=== PATIENT | female | born 1955 | race Caucasian/White ===

== ENCOUNTER → 2021-05-27 15:12 | Outpatient (BNVA) | payer BC, SELFPAY | PROVIDERS: PCP Internal Medicine; Visit Provider Hospitalist ==

== ENCOUNTER 2021-06-21 10:53 | Outpatient (REF) | payer BC, SELFPAY ==
[2021-06-21 12:30] LABS: MANUAL DIFF FLAG NO
[2021-06-21 12:51] LABS: Basophils Percent Auto 0.5 % (0-2); Eosinophils Absolute Auto 0.1 X10*3/uL (0.0-0.4); Hematocrit 43.7 % (37.0-47.0); Hemoglobin 14.3 g/dl (12.0-16.0); Imm Gran Abs Auto 0.02 X10*3/uL (0.00-0.03); Imm Gran Pct Auto 0.3 % (0.0-0.4); Lymphocytes Percent Auto 33.6 % (20-40); Mean Corpuscular HGB Conc 32.7 g/dl (31.0-35.0); Mean Corpuscular Hemoglobin 30.4 pg (27.0-33.0); Monocytes Absolute Auto 0.3 X10*3/uL (0.1-1.2); Monocytes Percent Auto 5.6 % (2-11); Neutrophils Absolute Auto 3.5 x10*3/uL (2.0-8.3); Platelet Count 250 X10*3/uL (160-400); Red Cell Distribution Width 13.2 % (11.0-16.0); White Blood Count 6.1 X10*3/uL (4.8-10.8)
[2021-06-21 13:32] LABS: Erythrocyte Sedimentation Rate 12 MM/HR (0-20)
--- NOTE | 2021-06-21 15:13 | PFT_ITS ---
FLOWS: FEV1 59% of predicted at 1.57 L. FVC 73% of predicted at 2.52 L. FEV1 to FVC ratio of 0.62. No bronchodilator response. LUNG VOLUMES: Total lung capacity 98% of predicted at 5.27 L. Residual volume 120% of predicted at 2.30 L. Slow vital capacity 83% of predicted at 2.67 L. Expiratory reserve volume 34% of predicted at 0.31 L. Diffusion capacity is mildly decreased, diffusion capacity corrects to normal after adjustment for alveolar ventilation. IMPRESSION: Moderate obstructive ventilatory defect with no bronchodilator response. Increased residual volume suggests air trapping. Decreased expiratory reserve volume suggests extrathoracic restriction likely secondary to abdominal obesity. Stuart Del Rio MD AP/MODL / [id number]
[2021-06-24 13:31] LABS: IgA 175 mg/dL (70-320); IgG 861 mg/dL (600-1540); IgM 133 mg/dL (50-300)
[2021-06-25 07:42] LABS: Anti Nuclear Antibody Screen NEGATIVE (NEGATIVE)
[2021-06-25 16:06] LABS: Cyclic Citrullinated Peptide <16 UNITS
[2021-06-28 16:05] LABS: Asperg fumigatus Precip Abs NEGATIVE (NEGATIVE); Micropoly faeni Abs NEGATIVE (NEGATIVE); Pigeon serum Abs NEGATIVE (NEGATIVE); Saccharo pora viridis Abs NEGATIVE (NEGATIVE); Thermo candidus Abs NEGATIVE (NEGATIVE); Thermoa vulgaris #1 NEGATIVE (NEGATIVE)
== END 2021-06-21 10:54 | disposition home or self-care (01) ==
LOC: HO.RESP 10:53
PROVIDERS: PCP Internal Medicine; Visit Provider Hospitalist
DX: R06.00 Dyspnea, unspecified (principal); J45.909 Unspecified asthma, uncomplicated; R91.8 Other nonspecific abnormal finding of lung field
CPT/HCPCS: 36415; 82784; 85025; 85652; 86038; 86039; 86200; 86331; 86606; 86609; 94060; 94727; 94729

== ENCOUNTER → 2021-07-08 09:58 | Outpatient (BNVA) | payer BC, SELFPAY | PROVIDERS: PCP Internal Medicine; Visit Provider Hospitalist ==

== ENCOUNTER 2021-07-25 13:50 | Outpatient (REF) | payer BC, SELFPAY | END 2021-07-25 13:51 | disposition home or self-care (01) | LOC: HO.LAB 13:50 | PROVIDERS: PCP Internal Medicine; Visit Provider Hospitalist | DX: J44.9 Chronic obstructive pulmonary disease, unspecified (principal) | CPT/HCPCS: 87070; 87116; 87205 ==

== ENCOUNTER → 2021-09-20 13:46 | Outpatient (BNVA) | payer BC, SELFPAY | PROVIDERS: PCP Internal Medicine; Visit Provider Hospitalist | DX: J44.9 Chronic obstructive pulmonary disease, unspecified (principal) ==

== ENCOUNTER 2021-10-14 10:15 | Outpatient (REF) | payer BC, SELFPAY ==
[2021-10-14 10:43] LABS: MANUAL DIFF FLAG NO
--- NOTE | 2021-10-14 11:20 | ECG_ITS ---
Test Reason : ON MEDICATION FOR MAC LUNG DISEASE Blood Pressure : / mmHG Vent. Rate : 069 BPM Atrial Rate : 069 BPM P-R Int : 158 ms QRS Dur : 086 ms QT Int : 424 ms P-R-T Axes : 069 007 042 degrees QTc Int : 454 ms Normal sinus rhythm Normal ECG No previous ECGs available Referred By: Jaskaran Bond Electronically Signed By:JOSEFA OVIEDO
[2021-10-14 11:47] LABS: Basophils Percent Auto 0.5 % (0-2); Eosinophils Absolute Auto 0.1 X10*3/uL (0.0-0.4); Eosinophils Percent Auto 0.8 % (0-4); Hematocrit 41.6 % (37.0-47.0); Hemoglobin 13.3 g/dl (12.0-16.0); Imm Gran Abs Auto 0.18 X10*3/uL (0.00-0.03); Imm Gran Pct Auto 2.1 % (0.0-0.4); Lymphocytes Percent Auto 34.9 % (20-40); Mean Corpuscular Hemoglobin 30.6 pg (27.0-33.0); Mean Corpuscular Volume 95.6 fL (80.0-98.0); Mean Platelet Volume 9.5 fL (9.4-12.3); Monocytes Absolute Auto 0.4 X10*3/uL (0.1-1.2); Monocytes Percent Auto 4.6 % (2-11); Neutrophils Absolute Auto 4.8 x10*3/uL (2.0-8.3); Neutrophils Percent Auto 57.1 % (45-73); Platelet Count 325 X10*3/uL (160-400); Red Blood Count 4.35 X10*6/uL (4.20-5.50); Red Cell Distribution Width 13.2 % (11.0-16.0); White Blood Count 8.5 X10*3/uL (4.8-10.8)
[2021-10-14 12:18] LABS: Alanine Aminotransferase 27 U/L (0-31); Alkaline Phosphatase 82 U/L (39-117); Anion Gap 15 (12-20); Aspartate Amino Transferase 14 U/L (5-31); Bilirubin Direct < 0.2 mg/dL (0.0-0.5); Bilirubin Total 0.3 mg/dL (0.0-1.0); Blood Urea Nitrogen 30 mg/dL (9-16); Calcium 9.9 mg/dL (8.4-10.2); Carbon Dioxide 28 mmol/L (22-29); Chloride 101 mmol/L (96-108); Estimated Glomerular Filt Rate 56; Glucose Random 141 mg/dL (60-115); Potassium 4.5 mmol/L (3.3-5.1); Sodium 139 mmol/L (135-145); Total Protein 6.6 g/dL (6.5-8.0)
[2021-10-14 12:23] LABS: Erythrocyte Sedimentation Rate 20 MM/HR (0-20)
== END 2021-10-14 10:16 | disposition home or self-care (01) ==
LOC: HO.LAB 10:15
PROVIDERS: PCP Internal Medicine; Visit Provider Hospitalist
DX: R91.8 Other nonspecific abnormal finding of lung field (principal); J44.9 Chronic obstructive pulmonary disease, unspecified
CPT/HCPCS: 36415; 80048; 80076; 85025; 85652; 87116; 93005

== ENCOUNTER 2021-11-20 11:32 | Outpatient (REF) | payer BC, SELFPAY ==
[2021-11-20 11:51] LABS: MANUAL DIFF FLAG NO
[2021-11-20 11:57] LABS: Basophils Percent Auto 0.6 % (0-2); Eosinophils Absolute Auto 0.1 X10*3/uL (0.0-0.4); Eosinophils Percent Auto 1.8 % (0-4); Hematocrit 42.5 % (37.0-47.0); Hemoglobin 13.9 g/dl (12.0-16.0); Imm Gran Abs Auto 0.01 X10*3/uL (0.00-0.03); Imm Gran Pct Auto 0.2 % (0.0-0.4); Lymphocytes Absolute Auto 1.6 X10*3/uL (1.2-4.9); Lymphocytes Percent Auto 25.8 % (20-40); Mean Corpuscular HGB Conc 32.7 g/dl (31.0-35.0); Mean Corpuscular Hemoglobin 30.6 pg (27.0-33.0); Mean Corpuscular Volume 93.6 fL (80.0-98.0); Mean Platelet Volume 9.7 fL (9.4-12.3); Monocytes Absolute Auto 0.4 X10*3/uL (0.1-1.2); Monocytes Percent Auto 6.4 % (2-11); Neutrophils Absolute Auto 4.1 x10*3/uL (2.0-8.3); Neutrophils Percent Auto 65.2 % (45-73); Platelet Count 217 X10*3/uL (160-400); Red Blood Count 4.54 X10*6/uL (4.20-5.50); Red Cell Distribution Width 13.2 % (11.0-16.0); White Blood Count 6.2 X10*3/uL (4.8-10.8)
[2021-11-20 12:41] LABS: Alanine Aminotransferase 21 U/L (0-31); Albumin Level 4.2 g/dL (3.5-5.0); Alkaline Phosphatase 81 U/L (39-117); Anion Gap 13 (12-20); Aspartate Amino Transferase 19 U/L (5-31); Bilirubin Direct < 0.2 mg/dL (0.0-0.5); Bilirubin Total 0.3 mg/dL (0.0-1.0); Blood Urea Nitrogen 21 mg/dL (9-16); Calcium 9.4 mg/dL (8.4-10.2); Carbon Dioxide 29 mmol/L (22-29); Chloride 103 mmol/L (96-108); Estimated Glomerular Filt Rate > 60; Glucose Random 112 mg/dL (60-115); Potassium 4.7 mmol/L (3.3-5.1); Sodium 140 mmol/L (135-145); Total Protein 6.6 g/dL (6.5-8.0)
== END 2021-11-20 11:33 | disposition home or self-care (01) ==
LOC: HO.LAB 11:32
PROVIDERS: PCP Internal Medicine; Visit Provider Hospitalist
DX: A31.0 Pulmonary mycobacterial infection (principal)
CPT/HCPCS: 36415; 80048; 80076; 85025

== ENCOUNTER 2021-12-09 17:52 | Outpatient (REF) | payer BC, SELFPAY | END 2021-12-09 17:53 | disposition home or self-care (01) | LOC: HO.LNP 17:52 | PROVIDERS: Visit Provider Hospitalist | DX: A31.0 Pulmonary mycobacterial infection (principal) | CPT/HCPCS: 87116 ==

== ENCOUNTER 2022-04-08 10:15 | Outpatient (REF) | payer BC, SELFPAY ==
[2022-04-08 11:42] LABS: MANUAL DIFF FLAG NO
[2022-04-08 12:03] LABS: Basophils Percent Auto 0.5 % (0-2); Eosinophils Absolute Auto 0.1 X10*3/uL (0.0-0.4); Eosinophils Percent Auto 2.3 % (0-4); Hematocrit 42.9 % (37.0-47.0); Hemoglobin 14.2 g/dl (12.0-16.0); Imm Gran Abs Auto 0.01 X10*3/uL (0.00-0.03); Imm Gran Pct Auto 0.2 % (0.0-0.4); Lymphocytes Absolute Auto 1.5 X10*3/uL (1.2-4.9); Lymphocytes Percent Auto 25.2 % (20-40); Mean Corpuscular HGB Conc 33.1 g/dl (31.0-35.0); Mean Corpuscular Hemoglobin 31.2 pg (27.0-33.0); Mean Corpuscular Volume 94.3 fL (80.0-98.0); Monocytes Absolute Auto 0.4 X10*3/uL (0.1-1.2); Monocytes Percent Auto 6.4 % (2-11); Neutrophils Absolute Auto 3.8 x10*3/uL (2.0-8.3); Neutrophils Percent Auto 65.4 % (45-73); Platelet Count 206 X10*3/uL (160-400); Red Blood Count 4.55 X10*6/uL (4.20-5.50); White Blood Count 5.8 X10*3/uL (4.8-10.8)
[2022-04-08 13:03] LABS: Alanine Aminotransferase 17 U/L (0-31); Albumin Level 4.4 g/dL (3.5-5.0); Alkaline Phosphatase 87 U/L (39-117); Anion Gap 14 (12-20); Aspartate Amino Transferase 18 U/L (5-31); Bilirubin Direct < 0.2 mg/dL (0.0-0.5); Bilirubin Total 0.3 mg/dL (0.0-1.0); Blood Urea Nitrogen 22 mg/dL (9-16); Calcium 9.9 mg/dL (8.4-10.2); Carbon Dioxide 30 mmol/L (22-29); Chloride 103 mmol/L (96-108); Estimated Glomerular Filt Rate > 60; Glucose Random 97 mg/dL (60-115); Potassium 4.6 mmol/L (3.3-5.1); Sodium 142 mmol/L (135-145)
[2022-04-10 14:19] LABS: Immunoglobulin G Subclass 1 543 mg/dL (382-929); Immunoglobulin G Subclass 2 184 mg/dL (241-700); Immunoglobulin G Subclass 3 43 mg/dL (22-178); Immunoglobulin G Subclass 4 60.6 mg/dL (4-86); Immunoglobulin G Total 887 mg/dL (600-1540)
== END 2022-04-08 10:16 | disposition home or self-care (01) ==
LOC: HO.LAB 10:15
PROVIDERS: PCP Internal Medicine; Visit Provider Hospitalist
DX: A31.0 Pulmonary mycobacterial infection (principal)
CPT/HCPCS: 36415; 80048; 80076; 82784; 85025

== ENCOUNTER → 2022-04-23 10:27 | Outpatient (BNVA) | payer BC, SELFPAY | PROVIDERS: PCP Internal Medicine; Visit Provider Hospitalist | DX: Z23 Encounter for immunization (principal); A31.0 Pulmonary mycobacterial infection; J21.9 Acute bronchiolitis, unspecified; J44.9 Chronic obstructive pulmonary disease, unspecified; R91.8 Other nonspecific abnormal finding of lung field; L20.9 Atopic dermatitis, unspecified | CPT/HCPCS: 90471; 90677 ==

== ENCOUNTER 2022-05-29 10:14 | Outpatient (REF) | payer BC, SELFPAY | END 2022-05-29 10:15 | disposition home or self-care (01) | LOC: HO.LNP 10:14 | PROVIDERS: Visit Provider Hospitalist | DX: A31.0 Pulmonary mycobacterial infection (principal) | CPT/HCPCS: 87116; 87206 ==

== ENCOUNTER → 2022-07-22 09:51 | Outpatient (BNVA) | payer BC, SELFPAY | PROVIDERS: PCP Internal Medicine; Visit Provider Hospitalist | DX: A31.0 Pulmonary mycobacterial infection (principal) ==

== ENCOUNTER 2022-09-01 13:39 | Outpatient (REF) | payer BC, SELFPAY ==
[2022-09-01 14:03] LABS: MANUAL DIFF FLAG NO
[2022-09-01 15:07] LABS: Basophils Percent Auto 0.6 % (0-2); Eosinophils Absolute Auto 0.2 X10*3/uL (0.0-0.4); Eosinophils Percent Auto 2.5 % (0-4); Hematocrit 42.8 % (37.0-47.0); Hemoglobin 14.2 g/dl (12.0-16.0); Imm Gran Abs Auto 0.03 X10*3/uL (0.00-0.03); Imm Gran Pct Auto 0.5 % (0.0-0.4); Lymphocytes Absolute Auto 1.9 X10*3/uL (1.2-4.9); Lymphocytes Percent Auto 29.1 % (20-40); Mean Corpuscular HGB Conc 33.2 g/dl (31.0-35.0); Mean Corpuscular Hemoglobin 31.5 pg (27.0-33.0); Mean Corpuscular Volume 94.9 fL (80.0-98.0); Mean Platelet Volume 10.2 fL (9.4-12.3); Monocytes Absolute Auto 0.4 X10*3/uL (0.1-1.2); Monocytes Percent Auto 6.3 % (2-11); Platelet Count 213 X10*3/uL (160-400); Red Blood Count 4.51 X10*6/uL (4.20-5.50); Red Cell Distribution Width 12.8 % (11.0-16.0); White Blood Count 6.5 X10*3/uL (4.8-10.8)
[2022-09-01 15:58] LABS: Anion Gap 15 (12-20); Blood Urea Nitrogen 21 mg/dL (9-16); Calcium 9.7 mg/dL (8.4-10.2); Carbon Dioxide 28 mmol/L (22-29); Chloride 103 mmol/L (96-108); Estimated Glomerular Filt Rate > 60; Glucose Random 88 mg/dL (60-115); Sodium 142 mmol/L (135-145)
== END 2022-09-01 13:40 | disposition home or self-care (01) ==
LOC: HO.LAB 13:39
PROVIDERS: PCP Internal Medicine; Visit Provider Hospitalist
DX: J45.41 Moderate persistent asthma with (acute) exacerbation (principal); R04.2 Hemoptysis; A31.0 Pulmonary mycobacterial infection; J44.9 Chronic obstructive pulmonary disease, unspecified; R91.8 Other nonspecific abnormal finding of lung field; L20.9 Atopic dermatitis, unspecified; Z87.891 Personal history of nicotine dependence
CPT/HCPCS: 36415; 80048; 85025; 87070; 87205; 94640

== ENCOUNTER 2022-09-01 14:55 | Outpatient (REF) | payer BC, SELFPAY ==
--- NOTE | ~2022-09-01 | XR_ITS ---
EXAMINATION: XR CHEST CLINICAL INFORMATION: R04.2 - Hemoptysis COMPARISON: Outside CT chest noncontrast 08/13/2022 and 09/18/2021 (RAYUS). TECHNIQUE: 2 views of the chest were obtained. FINDINGS: There is no acute intrathoracic disease. No airspace consolidation or groundglass opacity or effusion. No bronchiectasis. The heart is normal in size. Again, there is incidental tapering at the cardiophrenic angles consistent with areolar tissue and old minor linear scarring right medial base. The costophrenic sulci are clear. The hilar and mediastinal contours are normal. No visible acute bony abnormality. XR/XR chest 2V IMPRESSION: No acute intrathoracic disease.
== END 2022-09-01 14:56 | disposition home or self-care (01) ==
LOC: HO.XRAY 14:55
PROVIDERS: Visit Provider Hospitalist
DX: R04.2 Hemoptysis (principal)
CPT/HCPCS: 71046

== ENCOUNTER → 2022-09-24 10:24 | Outpatient (BNVA) | payer BC, SELFPAY | PROVIDERS: PCP Internal Medicine; Visit Provider Hospitalist ==

== ENCOUNTER 2023-01-07 16:53 | Outpatient (REF) | payer BC, SELFPAY | END 2023-01-07 16:54 | disposition home or self-care (01) | LOC: HO.LNP 16:53 | PROVIDERS: Visit Provider Hospitalist | DX: A31.0 Pulmonary mycobacterial infection (principal) | CPT/HCPCS: 87116; 87206 ==

== ENCOUNTER 2023-02-18 10:54 | Outpatient (REF) | payer BC, SELFPAY ==
--- NOTE | ~2023-02-18 | XR_ITS ---
EXAMINATION: XR CHEST 2 VIEWS CLINICAL INFORMATION: COPD. COMPARISON: Chest radiographs dated 09/01/2022; CT chest dated 08/13/2022. TECHNIQUE: Frontal and lateral views of the chest were obtained. FINDINGS: The heart, great vessels, pulmonary vasculature and mediastinum are normal. The lungs show no focal infiltrate, effusion or pneumothorax. There is no acute osseous abnormality. There is multi-level thoracic spondylosis. XR/XR chest 2V IMPRESSION: No active cardiopulmonary disease.
== END 2023-02-18 10:55 | disposition home or self-care (01) ==
LOC: HO.LAB 10:54
PROVIDERS: PCP Internal Medicine; Visit Provider Hospitalist
DX: A31.0 Pulmonary mycobacterial infection (principal); J44.9 Chronic obstructive pulmonary disease, unspecified; R91.8 Other nonspecific abnormal finding of lung field
CPT/HCPCS: 36415; 71046; 80048; 80076; 85025; 85652

== ENCOUNTER 2023-02-18 10:54 | Outpatient (AMB) | payer BC, SELFPAY ==
--- NOTE | 2023-02-18 11:05 | MHC.OFFVIS ---
Intake Vital Signs 02/18/23 11:06 Height 5 ft 5 in Weight 229 lb BMI 38.1 Pulse 71 Pulse Source Pulse Oximeter Pulse Oximetry (%) 96 Oxygen Delivery Method Room Air Intake Visit Reasons: Asthma Hot Roller Required: No Allergies amoxicillin Allergy (Severe, Verified 02/18/23 11:07) Rash contact metal agent Allergy (Severe, Verified 02/18/23 11:07) Hives amikacin Adverse Reaction (Severe, Verified 02/18/23 11:07) Shortness of Breath HPI HPI Comments History of Present Illness Details The patient is a 67-year-old woman with a long history of asthma and pulmonary nodules. She was under the care of a pulmonary group for many years. 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 During that process evaluation the patient was referred to [place] when she was also evaluated there for her ongoing respiratory symptoms in addition to pulmonary nodules. She has been stable on the Breo inhaler. the patient does have relief on her current respiratory regimen. We did talk about potential triggers. She has had allergy testing both with blood testing and more recently she has been evaluated by Allergy immunology which she had skin testing and does have typical allergies including molds and environmental allergens. She was placed on Xolair but she had adverse symptoms. She has had issues with high as and other rashes. She was referred to [place] for further evaluation. It was question if she would go back on Xolair as lower dose. she will continue following with Allergy immunology this time. the patient also describes going to [facility] just a few days ago with chest pain. She was ruled out for an RI. Her EKG was indeed abnormal demonstrating decrease R-wave progression. She was evaluated by her new primary care doctor and she will be undergoing additional testing for underlying cardiac disease at this time. The patient was a smoker and she quit more than 20 years ago. She did have a CT scan of the chest that was personally by me back in September 2020 at [facility] in [place]. She has underlying pulmonary nodules in addition to to some areas of tree in budding suggesting of bronchiolitis. These areas are scattered. She also has pulmonary nodules. We did talk about underlying obstructive airway disease in different conditions that can mimic asthma. In the meantime will start with repeating her pulmonary function studies and assessing her baseline. In addition to that will request blood work in order to further investigate her underlying condition. 07/08/2021 the patient is here for a pulmonary follow-up visit. She continues to have dyspnea on exertion. The Breo inhaler has been helpful partially. She did undergo pulmonary function studies that we personally reviewed. Appears to have moderate degree of obstruction consistent moderate COPD. In addition to that she did have a moderate diffusion impairment. Again we looked at her CT scan and not a clear etiology why her diffusing capacity is decreased. Ultimately need to consider underlying anemia or and or pulmonary vascular disease. Will try to optimize respiratory therapy by switching her over to Trelegy. In the meantime the patient quit smoking about 20 years ago. Will have her undergo an alpha-1 antitrypsin test to address that question. The patient does have pulmonary nodules in addition to the tree-in-bud in that she had back in our CT scan September 2020. In view of her ongoing symptoms in the pulmonary nodules the patient needs to get a repeat CT scan in September 2021. Will have her undergo the study and follow up with us for evaluation. 09/20/2021 the patient is here for a pulmonary follow-up visit. She continues with her ongoing symptoms of dyspnea and chest congestion. She did start to Trelegy inhaler which appears to be more effective for her. However, she has noticed increased chest congestion and production of mucus. moderate severity. 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 In review of her CT scans the chest this is consistent with the findings with treating budding and pulmonary nodules consistent of a smoldering lower respiratory infection. The patient have a repeat CT scan of the chest September 2021 which I personally reviewed with her demonstrating stable findings. We did talk about the treatment for the mycobacterium complex along with duration. The patient understands that even after treating the organism there is a 25% chance of relapse. Usually is from a different organism. She is aware that the mycobacteria limbs in many places including the daughter and also hot tubs. The patient is to minimize dose exposures. There is also question if she is allergic to the organisms as she has significant allergies. At this point the patient is symptomatic and she does have ongoing changes on CT scan although there is stable. He is not on reasonable to treat her and see if she tolerates the therapy in the address to see if her symptoms are improving. I will also try to request sensitivities to see if those were able to be completed on the positive sample. 11/25/2021 the patient is here for a pulmonary follow-up visit. Overall she is doing well. Seems to be tolerating the anti mycobacterial therapy with azithromycin ethambutol and rifampin. Initially at the beginning of the therapy she did develop worsening cough it was unclear if it was related to the medication. Therefore the medication was stopped briefly. She was diagnosed with pneumonia. She was treated with doxycycline. Subsequently once her symptoms improve the patient went back on the therapy. She did start slowly to make sure she can not tolerated. And be size having some GI symptoms she is tolerating it okay. 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 So therefore will continue to monitor her progress in the medication. I did request sensitivities and we did review that is macrolide sensitive and also amikacin sensitive. Therefore the patient has any difficulties tolerating the therapy we can also consider inhaled amikacin. The patient has underlying pulmonary nodules. Her last CT scan was back in September 2021. Will continue with current respiratory therapy. Will also monitor blood work every 3-4 months to make sure she is tolerating the medicine. Will hopefully plan to repeat the CT scan September 2022. 04/23/2022 the patient is here for a pulmonary follow-up visit. Overall the patient has been doing relatively well. Cough is better. Although it is hard for her to tolerate the antimicrobial therapy. She does take it 3 times a week. We did review her sputum samples. She did have positive mycobacterial cultures in July. We did perform sensitivities demonstrating sensitive to both amikacin and also clarithromycin. Subsequently we repeated the sputum cultures sometime in the fall 2021 and recently did come back positive again for the same mycobacteria organism. Explained to the patient that is likely that she is responding to the therapy but she needs additional therapy. She is also stating that she sometimes takes the antacid close to her azithromycin. She will she will try to take it a different time. Meantime we talked about different options. One option be to increase her azithromycin to daily from 3 times a week. She can continue the other medications 3 times a week to minimize side effects. Another option is to continue with 3 times a day medication and add amikacin to her regimen. Both options will be reasonable. However, will try increasing the azithromycin since we know that is sensitive and will repeat her sputum in a month. I am hopeful that the sputum cultures come back negative. If for some reason she is not tolerating the daily azithromycin the making again continue with 3 times a week medication regimen and add a medication to the regimen. If at any point the patient does not tolerate the therapy or continues to have positive cultures then we talked about sending her to the [facility] for further assessment. Will follow-up in a few months. She does need to have a repeat CT scan to follow-up with pulmonary nodules hopefully in the spring. 07/22/2022 the patient is here for a pulmonary follow-up visit. Overall she is doing about the same. She still has a cough and at times is productive although sometimes difficult to expectorate. She continues to tolerate the azithromycin daily and she is also using the family do not rifampin 3 times a week. This which she has been able to tolerated better as far as the GI adverse effects. We did look at her cultures again. 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 After that we did increase her azithromycin to daily. Only after few weeks of being on the daily azithromycin the patient had a 3rd sputum sent and again quickly positive for mycobacterium avium complex. Clinically, the patient does continue to cough and continues to be symptomatic. Denies any weight loss or night sweats. She has underlying pulmonary nodules. In view of her ongoing symptoms will go ahead and repeat the CT scan to address of response to therapy and to see if any nodular progression is evident. In addition to that will start the process of starting the patient on inhaled amikacin to properly treat this ongoing smoldering infection that does not appear to be responding to the current regimen. Explained to her that it may be that she has been exposed to other mycobacterial organisms under way that a making it difficult. She tries to be very careful with her exposures however. Well will trying to optimize her antimycobacterial therapy will also refer her to the [facility] in order to further address the persistent positive mycobacterial cultures even on therapy. 09/01/2022 the patient is here for a sick visit. The patient started the amikacin as prescribed. She also continue with the other anti mycobacterial therapy. Unfortunately she started demonstrating some chest tightness and chest congestion. She notices a little specks of blood. It was minimal. Therefore the recommendation was for her to continue and just monitor. The next day she had more episodes of chest tightness and congestion and also little bit more bloods. Therefore she stopped it. She has been complaining of increasing cough chest congestion moderate severity. She has been using her inhaler with partial improvement. Denies any fevers or chills. She does complaint of some pleuritic chest discomfort primarily the left chest area on the side. On examination she does have rhonchi and wheezing throughout. I do not appreciate a focal exam although I believe she probably pulled a muscle on her left side. I have her get an x-ray just to make sure. In the meantime the patient will need some prednisone. She is going to hold off on the amikacin as this is causing her to have a significant inflammatory reaction. Does not appear to be tolerating it. She does have an appointment coming up at [facility]. She is going to hold off on the amikacin until she is evaluated. Will reassess once the patient is feeling better. In the office we did give her a DuoNeb treatment to try to help with the wheezing and also did collect the sputum for culture to make sure that she does not have any ongoing infectious process. We were able to get a lot of sputum but we did send in any way to see if it can be process. 09/24/2022 the patient is here for pulmonary follow-up visit. She is doing better now after having an adverse effect to the amikacin. She completed the prednisone completed the doxycycline. She is still off her anti mycobacterial therapy. The patient did follow-up in [place] and was evaluated by the [facility]. They did agree to stop the amikacin. They did recommend the patient start daily antimicrobial therapy with azithromycin, ethambutol and rifampin. Did recommend a higher dose of ethambutol as well. Therefore going to work on getting her back to that regimen. I am hopeful that we can start slowly in order for to tolerated. Will plan to monitor closely her sputum cultures in regards of her hemoptysis is now all resolved which is reassuring. 02/18/2023 the patient is here for a pulmonary follow-up visit. the patient has been complaining increasing dyspnea on exertion. Also worsening cough. Moderate severity. We did review her last PFTs from 2020 demonstrating moderate obstruction. Will go ahead and plan to repeat the PFTs at this time. Currently she is optimized with Trelegy. In addition to that she is concerned that she still has positive mycobacterial cultures. Now with a different organism, M. marseillense. she is concerned of home knee different mycobacterial strained she could have. We did talk about her potential exposures. 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 She does try to wear mask. Although it does not appear to be helpful. 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 In the meantime she is been off and on her Mycobacterial therapy. The patient has had some issues with GI side effects. Therefore she had to stop the medication for period of time during the [place] when she was working and having issues with GI system. Subsequently after that the patient decided to hold off specially with this resistant organism. I did advise her to go back on the mycobacterial therapy as per the recommendations from the [facility]. Will request additional sensitivities from this mycobacterial strain. 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 Atopic dermatitis Bronchiolitis Pulmonary nodules Asthma Social History (Updated 05/27/21 @ 15:26 by JAY Espinoza) Patient Tobacco Use Status: Former Tobacco user Tobacco use type: Cigarette Years Smoked: Quit 1998 20 years Review of Systems Const Denies night sweats ENT Denies change in voice, Denies hoarseness, Denies lip swelling, Denies mouth pain, Reports nasal congestion, Reports nasal discharge and Denies tongue swelling Card Denies chest pain and Reports dyspnea on exertion Resp Denies chest congestion, Reports cough, Denies hemoptysis, Reports dyspnea on exertion and Reports wheezing GI Denies abdominal pain, Reports bloating, Denies hematochezia, Reports change in bowel habits, Reports loose stools and Reports nausea Musc Denies no additional complaints and Reports joint swelling Skin/Breast Denies rash and Denies skin swelling Neuro Denies Neuro-related abnormal movements Psych Denies no additional complaints Quentin/Lymph Denies easy bleeding and Denies lymphadenopathy Aller/Immun Denies lip swelling, Denies tongue swelling and Reports wheezing Physical Exam Vital Signs: Last Vital Signs Pulse 71 02/18/23 11:06 Pulse Ox 96 02/18/23 11:06 Oxygen Delivery Method Room Air 02/18/23 11:06 BMI result Body Mass Index 38.1 Const General: alert Neck Neck: Yes normal visual inspection, Yes full ROM and Yes no lymphadenopathy Chest Chest palpation & inspection: normal inspection of the chest Resp Effort & Inspection: prolonged expiratory phase Auscultation: no crackles, no rales, no rhonchi, no wheezes and diminished lung sounds Cardio Rate: regular rate Rhythm: regular rhythm Heart sounds: S1 normal heart sound present and S2 normal heart sound present GI Palpation (GI): Soft to palpation and nontender Auscultation: normal bowel sounds General: Yes no CVA tenderness Back/Spine/Pelvis Back: no CVA tenderness Skin General skin exam: rashes and/or lesions noted Assessment & Plan Assessment & Plan (1) 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 avium complex; M.CHIMAERA INTRACELLULARE; M. avium complex Code(s): A31.0 - Pulmonary mycobacterial infection (2) Asthma-COPD overlap syndrome: Code(s): J44.9 - Chronic obstructive pulmonary disease, unspecified (3) Pulmonary nodules: Code(s): R91.8 - Other nonspecific abnormal finding of lung field (4) Bronchiolitis: Code(s): J21.9 - Acute bronchiolitis, unspecified Plan Continue Trelegy 200 GLADYS as needed restart Azithromycin daily restart Rifampin/Ethambutol daily Labs now and in 3 months Avoid saunas, poorly ventilated hot tubes and direct exposure to soil. Should invest on a respirator when working with soil PFTs CXR should get an EKG while on the Macrolide therapy F/U in 2-3 months Orders: Orders Basic Metabolic Panel Today A31.0 - Pulmonary mycobacterial infection, J44.9 - Chronic obstructive pulmonary disease, unspecified PFT pulmonary function test Today J44.9 - Chronic obstructive pulmonary disease, unspecified Complete Blood Count Auto Diff Today A31.0 - Pulmonary mycobacterial infection, J44.9 - Chronic obstructive pulmonary disease, unspecified Liver Panel Today A31.0 - Pulmonary mycobacterial infection, J44.9 - Chronic obstructive pulmonary disease, unspecified Erythrocyte Sedimentation Rate Today A31.0 - Pulmonary mycobacterial infection, J44.9 - Chronic obstructive pulmonary disease, unspecified XR chest 2V Today A31.0 - Pulmonary mycobacterial infection, J44.9 - Chronic obstructive pulmonary disease, unspecified ECG 12 lead EKG Today J44.9 - Chronic obstructive pulmonary disease, unspecified Medications: Refilled [id number] 100-62.5-25 mcg (Trelegy Ellipta) 1 inh inhalation DAILY 60 ea 11RF 30 days J44.9 - Chronic obstructive pulmonary disease, unspecified Coding Level of Care Code Est Pt Level 4 (68848) Diagnoses Nontuberculous mycobacterial disease of lung A31.0 Asthma-COPD overlap syndrome J44.9 Pulmonary nodules R91.8 Bronchiolitis J21.9 Time Spent (min) 20
[2023-02-18 11:06] VITALS: PULSE 71; O2SAT 96; BMI 38.1
== END 2023-02-18 11:33 | disposition home or self-care (01) ==
PROVIDERS: PCP Internal Medicine; Visit Provider Hospitalist
DX: A31.0 Pulmonary mycobacterial infection (principal); J44.9 Chronic obstructive pulmonary disease, unspecified; R91.8 Other nonspecific abnormal finding of lung field
CPT/HCPCS: 99214

== ENCOUNTER 2023-03-23 11:49 | Outpatient (REF) | payer BC, SELFPAY ==
--- NOTE | 2023-03-23 12:43 | PFT_ITS ---
Forced vital capacity 98%, FEV1 73%, FEV1/FVC ratio is 58. AEC11-78 27% and MVV is 59%. Post-bronchodilator therapy, there is no significant change. Total lung capacity 95%. Residual volume 100%. Diffusion capacity 79%. CONCLUSION: Moderately severe obstructive airway disorder. There is no response to bronchodilator therapy. MD ELTON Last/FRANCISCO / [id number]
== END 2023-03-23 11:50 | disposition home or self-care (01) ==
LOC: HO.RESP 11:49
PROVIDERS: PCP Internal Medicine; Visit Provider Hospitalist
DX: J44.9 Chronic obstructive pulmonary disease, unspecified (principal)
CPT/HCPCS: 94010; 94727; 94729

== ENCOUNTER → 2023-03-23 12:43 | Outpatient (BNV) | payer BC, SELFPAY | PROVIDERS: PCP Internal Medicine; Visit Provider Internal Medicine | DX: J44.9 Chronic obstructive pulmonary disease, unspecified (principal) | CPT/HCPCS: 94060; 94727; 94729 ==

== ENCOUNTER 2023-03-27 11:28 | Outpatient (REF) | payer BC, SELFPAY ==
[2023-03-27 11:38] LABS: MANUAL DIFF FLAG NO
--- NOTE | 2023-03-27 11:40 | ECG_ITS ---
Test Reason : COPD Blood Pressure : / mmHG Vent. Rate : 068 BPM Atrial Rate : 068 BPM P-R Int : 160 ms QRS Dur : 086 ms QT Int : 424 ms P-R-T Axes : 062 -04 048 degrees QTc Int : 450 ms Normal sinus rhythm Intra-ventricular conduction delay Otherwise normal ECG When compared with ECG of 14-OCT-2021 11:21, No significant change was found Referred By: Jaskaran Bond Electronically Signed By:ZAYDA VARNER MD
[2023-03-27 11:55] LABS: Basophils Percent Auto 0.5 % (0-2); Eosinophils Absolute Auto 0.1 X10*3/uL (0.0-0.4); Eosinophils Percent Auto 2.2 % (0-4); Hematocrit 42.2 % (37.0-47.0); Hemoglobin 14.3 g/dl (12.0-16.0); Imm Gran Abs Auto 0.02 X10*3/uL (0.00-0.03); Imm Gran Pct Auto 0.3 % (0.0-0.4); Lymphocytes Absolute Auto 1.4 X10*3/uL (1.2-4.9); Lymphocytes Percent Auto 22.8 % (20-40); Mean Corpuscular HGB Conc 33.9 g/dl (31.0-35.0); Mean Corpuscular Hemoglobin 31.4 pg (27.0-33.0); Mean Corpuscular Volume 92.5 fL (80.0-98.0); Monocytes Absolute Auto 0.4 X10*3/uL (0.1-1.2); Monocytes Percent Auto 5.8 % (2-11); Neutrophils Absolute Auto 4.3 x10*3/uL (2.0-8.3); Neutrophils Percent Auto 68.4 % (45-73); Platelet Count 224 X10*3/uL (160-400); Red Blood Count 4.56 X10*6/uL (4.20-5.50); Red Cell Distribution Width 12.8 % (11.0-16.0); White Blood Count 6.2 X10*3/uL (4.8-10.8)
[2023-03-27 12:31] LABS: Erythrocyte Sedimentation Rate 13 MM/HR (0-20)
[2023-03-27 12:44] LABS: Alanine Aminotransferase 15 U/L (0-31); Albumin Level 4.2 g/dL (3.5-5.0); Alkaline Phosphatase 82 U/L (39-117); Anion Gap 12 (12-20); Aspartate Amino Transferase 15 U/L (5-31); Bilirubin Direct 0.1 mg/dL (0.0-0.5); Bilirubin Total 0.3 mg/dL (0.0-1.0); Blood Urea Nitrogen 17 mg/dL (9-16); Calcium 9.8 mg/dL (8.4-10.2); Carbon Dioxide 27 mmol/L (22-29); Chloride 105 mmol/L (96-108); Estimated Glomerular Filt Rate > 60; Glucose Random 112 mg/dL (60-115); Potassium 3.2 mmol/L (3.3-5.1); Sodium 141 mmol/L (135-145)
== END 2023-03-27 11:29 | disposition home or self-care (01) ==
LOC: HO.LAB 11:28
PROVIDERS: PCP Internal Medicine; Visit Provider Hospitalist
DX: J44.9 Chronic obstructive pulmonary disease, unspecified (principal); A31.0 Pulmonary mycobacterial infection
CPT/HCPCS: 36415; 80048; 80076; 85025; 85652; 93005

== ENCOUNTER → 2023-05-05 07:53 | Outpatient (REF) | payer BC, SELFPAY ==
--- NOTE | 2023-05-05 08:03 | ECG_ITS ---
Test Reason : copd Blood Pressure : / mmHG Vent. Rate : 073 BPM Atrial Rate : 073 BPM P-R Int : 164 ms QRS Dur : 090 ms QT Int : 432 ms P-R-T Axes : 069 -04 051 degrees QTc Int : 475 ms Normal sinus rhythm Normal ECG When compared with ECG of 27-MAR-2023 11:39, No significant change was found Referred By: Jaskaran Bond Electronically Signed By:JOSEFA OVIEDO
== END ==
LOC: HO.CARD 07:53
PROVIDERS: PCP Internal Medicine; Visit Provider Hospitalist
DX: J44.9 Chronic obstructive pulmonary disease, unspecified (principal)
CPT/HCPCS: 93005

== ENCOUNTER → 2023-05-05 08:03 | Outpatient (BNV) | payer BC, SELFPAY | PROVIDERS: PCP Internal Medicine; Visit Provider Internal Medicine | DX: R06.02 Shortness of breath (principal); J44.9 Chronic obstructive pulmonary disease, unspecified | CPT/HCPCS: 93010 ==

== ENCOUNTER 2023-05-05 08:22 | Outpatient (AMB) | payer BC, SELFPAY ==
--- NOTE | 2023-05-05 08:46 | A.OFFVIS_ITS ---
Intake Vital Signs 05/05/23 08:48 Height 5 ft 5 in Weight 227 lb 1.218 oz BMI 37.8 BP 128/60 Blood Pressure Location Rt brachial Position Sitting Pulse 66 Pulse Source Pulse Oximeter Pulse Oximetry (%) 97 Oxygen Delivery Method Room Air Intake Visit Reasons: EKG Results Swine Nutritionist Required: No Allergies amoxicillin Allergy (Severe, Verified 05/05/23 08:52) Rash contact metal agent Allergy (Severe, Verified 05/05/23 08:52) Hives amikacin Adverse Reaction (Severe, Verified 05/05/23 08:52) Shortness of Breath HPI HPI Comments History of Present Illness Details The patient is a 67-year-old woman with a long history of asthma and pulmonary nodules. She was under the care of a pulmonary group for many years. 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 During that process evaluation the patient was referred to [place] when she was also evaluated there for her ongoing respiratory symptoms in addition to pulmonary nodules. She has been stable on the Breo inhaler. the patient does have relief on her current respiratory regimen. We did talk about potential triggers. She has had allergy testing both with blood testing and more recently she has been evaluated by Allergy immunology which she had skin testing and does have typical allergies including molds and environmental allergens. She was placed on Xolair but she had adverse symptoms. She has had issues with high as and other rashes. She was referred to [place] for further evaluation. It was question if she would go back on Xolair as lower dose. she will continue following with Allergy immunology this time. the patient also describes going to [facility] just a few days ago with chest pain. She was ruled out for an OK. Her EKG was indeed abnormal demonstrating decrease R-wave progression. She was evaluated by her new primary care doctor and she will be undergoing additional testing for underlying cardiac disease at this time. The patient was a smoker and she quit more than 20 years ago. She did have a CT scan of the chest that was personally by me back in September 2020 at [facility] in [place]. She has underlying pulmonary nodules in addition to to some areas of tree in budding suggesting of bronch iolitis. These areas are scattered. She also has pulmonary nodules. We did talk about underlying obstructive airway disease in different conditions that can mimic asthma. In the meantime will start with repeating her pulmonary function studies and assessing her baseline. In addition to that will request blood work in order to further investigate her underlying condition. 04/23/2022 the patient is here for a pul monary follow-up visit. Overall the patient has been doing relatively well. Cough is better. Although it is hard for her to tolerate the antimicrobial therapy. She does take it 3 times a week. We did review her sputum samples. She did have positive mycobacterial cultures in July. We did perform sensitivities demonstrating sensitive to both amikacin and also clarithromycin. Subsequently we repeated the sputum cultures sometime in the fall 2021 and recently did come back positive again for the same mycobacteria organism. Explained to the patient that is likely that she is responding to the therapy but she needs additional therapy. She is also stating that she sometimes takes the antacid close to her azithromycin. She will she will try to take it a different time. Meantime we talked about different options. One option be to increase her azithromycin to daily from 3 times a week. She can continue the other medications 3 times a week to minimize side ef fects. Another option is to continue with 3 times a day medication and add amikacin to her regimen. Both options will be reasonable. However, will try increasing the azithromycin since we know that is sensitive and will repeat her sputum in a month. I am hopeful that the sputum cultures come back negative. If for some reason she is not tolerating the daily azithromycin the making again continue with 3 times a week medication regimen and add a medication to the regimen. If at any point the patient does not tolerate the therapy or continues to have positive cultures then we talked about sending her to the [facility] mycobacterial Clinic for further assessment. Will follow-up in a few months. She does need to have a repeat CT scan to follow-up with pulmonary nodules hopefully in the spring. 07/22/2022 the patient is here for a pulm onary follow-up visit. Overall she is doing about the same. She still has a cough and at times is productive although sometimes difficult to expectorate. She continues to tolerate the azithromycin daily and she is also using the family do not rifampin 3 times a week. This which she has been able to tolerated better as far as the GI adverse effects. We did look at her cultures again. 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 After that we did increase her azithromycin to dacia ly. Only after few weeks of being on the daily azithromycin the patient had a 3rd sputum sent and again quickly positive for mycobacterium avium complex. Clinically, the patient does continue to cough and continues to be symptomatic. Denies any weight loss or night sweats. She has underlying pulmonary nodules. In view of her ongoing symptoms will go ahead and repeat the CT scan to address of response to therapy and to see if any nodular progression is evident. In addition to that will start the process of starting the patient on inhaled amikacin to properly treat this ongoing smoldering infection that does not appear to be responding to the current regimen. Explained to her that it may be that she has been exposed to other mycobacterial organisms under way that a making it difficult. She tries to be very careful with her exposures however. Well will trying to optimize her antimycobacterial therapy will also refer her to the [facility] mycobacterial Clinic in order to further address the persistent positive mycobacterial cultures even on therapy. 09/01/2022 the patient is here for a sick visit. The patient started the amikacin as prescribed. She also continue with the other anti mycobacterial therapy. Unfortunately she started demonstrating some chest tightness and chest congestion. She notices a little specks of blood. It was minimal. Therefore the recommendation was for her to continue and just monitor. The next day she had more episodes of chest tightness and congestion and also little bit more bloods. Therefore she stopped it. She has been complaining of increasing cough chest congestion moderate severity. She has been using her inhaler with partial improvement. Denies any fevers or chills. She does complaint of some pleuritic chest discomfort primarily the left chest area on the side. On examination she does have rhonchi and wheezing throughout. I do not appreciate a focal exam although I believe she probably pulled a muscle on her left side. I have her get an x-ray just to make sure. In the meantime the patient will need some prednisone. She is going to hold off on the amikacin as this is causing her to have a significant inflammatory reaction. Does not appear to be tolerating it. She does have an appointment coming up at [facility] mycobacterium clinic. She is going to hold off on the amikacin until she is evaluated. Will reassess once the patient is feeling better. In the office we did give her a DuoNeb treatment to try to help with the wheezing and also did collect the sputum for culture to make sure that she does not have any ongoing infectious process. We were able to get a lot of sputum but we did send in any way to see if it can be process. 09/24/2022 the patient is here for pulmon joslyn follow-up visit. She is doing bet ter now after having an adverse effect to the amikacin. She completed the prednisone completed the doxycycline. She is still off her anti mycobacterial therapy. The patient did follow-up in [place] and was evaluated by the [facility] mycobacterial Clinic. They did agree to stop the amikacin. They did recommend the patient start daily antimicrobial therapy with azithromycin, ethambutol and rifampin. Did recommend a higher dose of ethambutol as well. Therefore going to work on getting her back to that regimen. I am hopeful that we can start slowly in order for to tolerated. Will plan to monitor closely her sputum cultures in regards of her hemoptysis is now all resolved which is reassuring. 02/18/2023 the patient is here for a pulmonary follow-up visit. the patient has been complaining increasing dyspnea on exertion. Also worsening cough. Moderate severity. We did review her last PFTs from 2020 demonstrating moderate obstruction. Will go ahead and plan to repeat the PFTs at this time. Currently she is optimized with Trelegy. In addition to that she is concerned that she still has positive mycobacterial cultures. Now with a different organism, M. marseillense. she is concerned of home knee different mycobacterial strained she could have. We did talk about her potential exposures. 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 She does try to wear mask. Although it does not appear to be helpful. 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 In the meantime she is been off and on her Mycobacterial therapy. The patient has had some issues with GI side effects. Therefore she had to stop the medication for period of time during the BG when she was working and having issues with GI system. Welch bsequently after that the patient decided to hold off specially with this resistant organism. I did advise her to go back on the mycobacterial therapy as per the recommendations from the [facility] mycobacterial Clinic. Will request additional sensitivities from this mycobacterial strain. 05/05/2023 the patient is here for a pul [facility]. The patient has been feeling better. She did have a respiratory illness a few weeks ago. She has not recovered. She also having a lot of productive sputum. She was concerned about the mycobacterial disease. In the meantime she has hard time to lerating the antimycobacterial therapy. She has only been taking the azithromycin 500 mg 7 days a week. Explained to him the concerns about the possibility of resistance. By taking monotherapy she can become resistant to the only medication that when most of the work. Therefore, she is agreeable to taking the triple therapy 3 times a week and then we can recheck her sputum hopefully in 3 months time. We also reviewed her EKG. She had an EKG done last month demonstrating some slight intraventricular conduction delay that was not convinced with. We had a repeat an EKG and was completely normal. QRS intervals are normal QT intervals are also normal. Therefore explained to her that is safe for her to take the azithromycin but she needs to be careful with any other medication interactions. The patient did have PFTs and we did review them. Appears that her FEV1 is improved from 1.59-1.79 L which is reassuring. She still has mild COPD. Her last CT scan was back in August 2022 demonstrating pulmonary nodules. Will plan to have her come back in the springtime after her CT scan to address her pulmonary nodules. At that time will also review her sputum and also recheck her EKG. I am hopeful that she is doing well and if her sputums are negative we can switch her to monotherapy. A S the the the the has a rectal down to a couple was not the the the a the lumen with the the the the the about it I forget p.o. diet g IV that will admit about the dialed up at [facility] unaware that whole device and a little bit of weight going without emesis I shot a barely noticeable point abnormal we downloaded the it a little better appointment in the the will reassess and ileus of vitals does happens under local his MSLT to be done from [facility] comorbid CT scan does he can supplement a after a does more reasonable a hello ago when she had to pay the head or coughing more the the the the nebulized tested be in no should exercise the the LQ if perhaps [facility] Medical History (Updated 02/18/23 @ 22:08 by Jaskaran Bond MD) Hemoptysis 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 Atopic dermatitis Bronchiolitis Pulmonary nodules Asthma Social History (Updated 05/27/21 @ 15:26 by Lena Torres Sade) Patient Tobacco Use Status: Former Tobacco user Tobacco use type: Cigarette Years Smoked: Quit 1998 20 years Review of Systems Const Denies night sweats ENT Denies change in voice, Denies hoarseness, Denies lip swelling, Denies mouth pain, Reports nasal congestion, Reports nasal discharge and Denies tongue swelling Card Denies chest pain and Reports dyspnea on exertion Resp Denies chest congestion, Reports cough, Denies hemoptysis, Reports dyspnea on exertion and Reports wheezing GI Reports abdominal pain, Reports bloating, Denies hematochezia, Reports change in bowel habits, Reports loose stools and Reports nausea Musc Denies no additional complaints and Reports joint swelling Skin/Breast Denies rash and Denies skin swelling Neuro Denies Neuro-related abnormal movements Psych Denies no additional complaints Quentin/Lymph Denies easy bleeding and Denies lymphadenopathy Aller/Immun Denies lip swelling, Denies tongue swelling and Reports wheezing Physical Exam Vital Signs: Last Vital Signs Pulse 66 05/05/23 08:48 BP 128/60 05/05/23 08:48 Pulse Ox 97 05/05/23 08:48 Oxygen Delivery Method Room Air 05/05/23 08:48 BMI result Body Mass Index 37.8 Const General: alert Neck Neck: Yes normal visual inspection, Yes full ROM and Yes no lymphadenopathy Chest Chest palpation & inspection: normal inspection of the chest Resp Effort & Inspection: No prolonged expiratory phase Auscultation: no crackles, no rales, no rhonchi, no wheezes and diminished lung sounds Cardio Rate: regular rate Rhythm: regular rhythm Heart sounds: S1 normal heart sound present and S2 normal heart sound present GI Palpation (GI): Soft to palpation and nontender Auscultation: normal bowel sounds General: Yes no CVA tenderness Back/Spine/Pelvis Back: no CVA tenderness Skin General skin exam: rashes and/or lesions noted Results Reviewed Results Reviewed: RUN: 04/23/22 4800 PAGE 1 [facility] [address] [place] [id number] [employer] Supervisor: Silvio Humphreys M.D. Specimen Inquiry Name: Kamila Lang Age/Sex: 66/F : 1955 Unit#: [id number] Attend Dr: Jaskaran Bond MD Re12/09/21 Status: DEP REF Location: [facility] Disch: Specimen: [id number] Collected: 12/09/21 Status: COMP Req#: [id number] Received: 12/09/21 Source: Sputum Sp Desc: Expecto Subm Dr: Jaskaran Bond MD Ordered: Acid-fast Cult Procedure Result Verified Site N Acid-Fast Smear Final 12/14/21-1148 [facility] Acid-Fast Smear No acid-fast bacilli seen. Testing performed at: [address] [address] Acid-Fast Culture Final 02/13/22-1506 [facility] CULTURE Report Date: 12/24/2021 Acid-fast organisms have been isolated from this specimen. Growth in liquid culture media at 12 days. IDENTIFICATION Report Date: 12/28/2021 The acid-fast organism has been identified by MALDI-TOF as Mycobacterium chimaera intracellulare group. If additional organisms are identified an amended report will be issued. Comment: This assay has not been cleared or approved by the U.S. Food and Drug Administration (FDA). This test was adopted for use and its performance characteristics determined by the [facility] of the Department of Public Health which is certified under the Clinical Laboratory Improvement Amendments of 1988 (CLIA-88) as qualified to perform high complexity clinical laboratory testing. Testing performed at: [address] [address] Results of M.CHIMAERA INTRACELLUL[facility] called to and read back by Iman (pulmonary office) on 12/30/21 at 0900 by ANTONIETTA. ++++++++++++++++++++++++++++++++++++++++++++++++++++++++++ 12/30/[address] BOND, NOTIFIED [facility] TO SEND ISOLATE FOR SUSCEPTIBILITY TESTING. 02/13/22 PER MARIJA RAMIREZ, [email or web address]: UNABLE TO PERFORM SUSCEPTIBILITY TEST ON ORGANISM, DUE TO LACK OF GROWTH AFTER SEVERAL ATTEMPTS. Results of inability to perform susceptibiliy called to Pulmonary office, [place], on 02/13/22 by JADA. END OF REPORT RUN: 04/23/22 4856 PAGE 1 [facility] [address] [place] [phone] [employer] Supervisor: Silvio Humphreys M.D. Specimen Inquiry Name: Kamila Lang Age/Sex: 65/F : 1955 Unit#: [id number] Attend Dr: Jaskaran Bond MD Re07/25/21 Status: DEP [facility] Disch: Specimen: [id number] Collected: 07/25/21 Status: COMP Req#: [id number] Received: 03/17/22-1418 Source: Sputum Sp Desc: Expecto Subm Dr: Jaskaran Bond MD Ordered: Acid-fast Cult Procedure Result Verified Site Acid-Fast Smear Final 08/01/21-0709 DPH Acid-Fast Smear No acid-fast bacilli seen. Testing performed at: [address] [address] Acid-Fast Culture Final 11/22/21-1129 [facility] MICROSCOPY Report Date: 07/30/2021 Method: Fluorochrome (250x): Acid-fast bacilli not found. CULTURE Report Date: 08/08/2021 Acid-fast organisms have been isolated from this specimen. Growth in liquid culture media at 9 days. IDENTIFICATION Report Date: 09/06/2021 The acid-fast organism has been identified by MALDI-TOF as M. avium complex. If additional organisms are identified an amended report will be issued. Comment: This assay has not been cleared or approved by the U.S. Food and Drug Administration (FDA). This test was adopted for use and its performance characteristics determined by the [facility] the Department of Public Health which is certified under the Clinical Laboratory Improvement Amendments of 1988 (CLIA-88) as qualified to perform high complexity clinical laboratory testing. DRUG SUSCEPTIBILITY DRUG SUSCEPTIBILITY TESTING WILL NOT BE DONE ON THIS CULTURE. Testing performed at: [address] [address] Results of Acid Fast called to and read back by Karrie in Dr. Bond's office on 09/06/21 at 1531 by JADA. >>>>>>>>>>>>>>>>>>>>>>>>>>>>>>>>>>>>>>>>>>>>>>>>>>>>>>>>>>>> > CULTURE Report Date: 08/08/2021 Acid-fast organisms have been isolated from this specimen. Growth in liquid culture media at 9 days. Acid fast result called to Karrie in 's office on 08/09/2021 at [address]ANNE, SEND FOR SUSCEPTIBILITY TESTING ON M.AVIUM COMPLEX. ANTIBIOTIC JOHN (ug/ml) INTERPRETATION Clarithromycin 2 SUSCEPTIBLE Amikacin (IV) (1) 16 SUSCEPTIBLE Amikacin (1) 16 SUSCEPTIBLE (Inhaled liposomal) This test was developed and its performancve characteristics determined by our laboratory. It has not been cleared or approved by the FDA. The laboratory is regulated under CLIA as qualified to perform high-complexity testing. This test is used for clinical purposes. It should not be regarded as investigational or research work. This methodology for broth microdilution JOHN testing and JOHN breakpoints for Mycobacterium avium complex (MAC) have been approved by the CLIA revised in 2014 in the M24, 3rd edition and M62. In vitro JOHN data for ethambutol, rifampin and rifabutin have shown no correlation with clinical response and should not be reported with isolates of MAC. Routine testing of macrolides and amikacin only has been recommended (ATS/IDSA.2007, CLSI M24, 3rd edition, 2018) for isolates of MAC. For macrolide resistant MAC isolates or other special circumstances, it may be reasonable to test secondary agents (i.e. linezolid, moxiflocacin can be tested upon request) However, treatment benefits with linezolid and moxifloxacin are unproven. (1) The CLSI has recently addressed susceptibility testing of MAC with amikacin in order to permit selection of breakpoints (CLSI M24, 3rd edition and M 62 2018.) Studies at our laboratory have been shown correlation of in-vitro amikacin results with clinical response. An amikacin breakpoint JOHN of >= 128 ug/ml for inhaled amikacin is considered resistant; >=64ug/ml for IV amikacin is considered resistant. (1) There are no criteria to assess the JOHN's of MAC to bedaquiline or clofazamine. The decision to treat with bedaquiline or clorasimine for nontuberulous mycobacteria (NTM) rests on clinical judgement and risk/benefit decisions. The CLSI has not addressed the testing, quality control engineer, or JOHN breakpoints for bedaquiline or clofazimine or other newer agents (e.g. amadacycline, eravacycline, tedizolid) against NTM. Macrolide susceptible isolate of Mycobacterium avium complex. Testing performed by: Brit Méndez MS MT([facility]) Applier/Professor Of Engineering Mycobacteria/Nocardia Laboratory [facility] [id number] [place] [id number] Brian Jessica Jr., MD- Director Mycobacteria/Nocardia Laboratory [facility] [id number] [place] [id number] END OF REPORT Assessment & Plan Assessment & Plan (1) 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 avium complex; M.[facility] INTRACELLULARE; M. avium complex Code(s): A31.0 - Pulmonary mycobacterial infection (2) Asthma-COPD overlap syndrome: Code(s): J44.9 - Chronic obstructive pulmonary disease, unspecified (3) Pulmonary nodules: Code(s): R91.8 - Other nonspecific abnormal finding of lung field (4) Bronchiolitis: Code(s): J21.9 - Acute bronchiolitis, unspecified Plan Continue Trelegy 200 GLADYS as needed change Azithromycin MWF restart Rifampin/Ethambutol MWF EKG in 3 months Avoid saunas, poorly ventilated hot tubes and direct exposure to soil. Should invest on a respirator when working with soil CT chest 08/2022 repeat sputm AFB in 3 months F/U in August [address]: [address] chest wo IV con 08/10/23 R91.8 - Other nonspecific abnormal finding of lung field Acid-fast Culture + Smear 3 Months A31.0 - Pulmonary mycobacterial infection ECG 12 lead EKG 3 Months A31.0 - Pulmonary mycobacterial infection, J44.9 - Chronic obstructive pulmonary disease, unspecified Coding Level of Care Code Est Pt Level 5 (60254) Diagnoses Nontuberculous mycobacterial disease of lung A31.0 Asthma-COPD overlap syndrome J44.9 Pulmonary nodules R91.8 Bronchiolitis J21.9 Time Spent (min) 60
[2023-05-05 08:48] VITALS: BP 128/60; PULSE 66; O2SAT 97; BMI 37.8
== END 2023-05-05 09:20 | disposition home or self-care (01) ==
PROVIDERS: PCP Internal Medicine; Visit Provider Hospitalist
DX: A31.0 Pulmonary mycobacterial infection (principal); J44.9 Chronic obstructive pulmonary disease, unspecified; R91.8 Other nonspecific abnormal finding of lung field
CPT/HCPCS: 99215

== ENCOUNTER 2023-07-23 15:02 | Outpatient (REF) | payer BC, SELFPAY | END 2023-07-23 15:03 | disposition home or self-care (01) | LOC: HO.LNP 15:02 | PROVIDERS: Visit Provider Hospitalist | DX: A31.0 Pulmonary mycobacterial infection (principal) | CPT/HCPCS: 87116; 87206 ==

== ENCOUNTER → 2023-09-04 13:26 | Outpatient (REF) | payer BC, SELFPAY ==
--- NOTE | 2023-09-04 13:39 | ECG_ITS ---
Test Reason : copd Blood Pressure : / mmHG Vent. Rate : 071 BPM Atrial Rate : 071 BPM P-R Int : 164 ms QRS Dur : 086 ms QT Int : 418 ms P-R-T Axes : 057 -13 045 degrees QTc Int : 454 ms Normal sinus rhythm Normal ECG When compared with ECG of 05-MAY-2023 07:59, No significant change was found Referred By: Jaskaran Bond Electronically Signed By:ADALBERTO LIZ MD
[2023-09-04 13:48] LABS: MANUAL DIFF FLAG NO
[2023-09-04 13:55] LABS: Basophils Percent Auto 0.5 % (0-2); Eosinophils Absolute Auto 0.1 X10*3/uL (0.0-0.4); Eosinophils Percent Auto 1.7 % (0-4); Hematocrit 43.3 % (37.0-47.0); Imm Gran Abs Auto 0.01 X10*3/uL (0.00-0.03); Imm Gran Pct Auto 0.2 % (0.0-0.4); Lymphocytes Absolute Auto 1.6 X10*3/uL (1.2-4.9); Lymphocytes Percent Auto 26.5 % (20-40); Mean Corpuscular HGB Conc 34.6 g/dl (31.0-35.0); Mean Corpuscular Hemoglobin 31.6 pg (27.0-33.0); Mean Corpuscular Volume 91.4 fL (80.0-98.0); Mean Platelet Volume 9.6 fL (9.4-12.3); Monocytes Absolute Auto 0.4 X10*3/uL (0.1-1.2); Monocytes Percent Auto 6.2 % (2-11); Neutrophils Absolute Auto 3.9 x10*3/uL (2.0-8.3); Neutrophils Percent Auto 64.9 % (45-73); Platelet Count 233 X10*3/uL (160-400); Red Blood Count 4.74 X10*6/uL (4.20-5.50); Red Cell Distribution Width 12.7 % (11.0-16.0)
[2023-09-04 14:36] LABS: Erythrocyte Sedimentation Rate 6 MM/HR (0-20)
[2023-09-04 14:39] LABS: Alanine Aminotransferase 31 U/L (0-31); Albumin Level 4.4 g/dL (3.5-5.0); Alkaline Phosphatase 71 U/L (39-117); Anion Gap 12 (12-20); Aspartate Amino Transferase 21 U/L (5-31); Bilirubin Direct 0.2 mg/dL (0.0-0.5); Bilirubin Total 0.5 mg/dL (0.0-1.0); Blood Urea Nitrogen 14 mg/dL (9-16); Calcium 10.1 mg/dL (8.4-10.2); Carbon Dioxide 32 mmol/L (22-29); Chloride 100 mmol/L (96-108); Estimated Glomerular Filt Rate > 60; Glucose Random 111 mg/dL (60-115); Potassium 4.1 mmol/L (3.3-5.1); Sodium 140 mmol/L (135-145); Total Protein 7.3 g/dL (6.5-8.0)
[2023-09-07 12:39] LABS: IgA 139 mg/dL (70-320); IgG 850 mg/dL (600-1540); IgM 107 mg/dL (50-300)
== END ==
LOC: HO.CARD 13:26
PROVIDERS: PCP Internal Medicine; Visit Provider Hospitalist
DX: A31.0 Pulmonary mycobacterial infection (principal); J44.9 Chronic obstructive pulmonary disease, unspecified
CPT/HCPCS: 36415; 80048; 80076; 82784; 85025; 85652; 93005

== ENCOUNTER → 2023-09-04 13:39 | Outpatient (BNV) | payer BC, SELFPAY | PROVIDERS: PCP Internal Medicine; Visit Provider Internal Medicine Cardiovascular Disease | DX: R06.02 Shortness of breath (principal) | CPT/HCPCS: 93010 ==

== ENCOUNTER 2023-09-08 09:24 | Outpatient (AMB) | payer BC, SELFPAY ==
--- NOTE | 2023-09-08 09:28 | MHC.OFFVIS ---
Vital Signs 09/08/23 09:29 Height 5 ft 5 in Weight 213 lb 8 oz BMI 35.5 Pulse 73 Pulse Source Pulse Oximeter Pulse Oximetry (%) 94 Oxygen Delivery Method Room Air Intake Visit Reasons: Asthma Activities Officer Required: No Allergies amoxicillin Allergy (Severe, Verified 09/08/23 09:30) Rash contact metal agent Allergy (Severe, Verified 09/08/23 09:30) Hives amikacin Adverse Reaction (Severe, Verified 09/08/23 09:30) Shortness of Breath HPI Comments Details: The patient is a 67-year-old woman with a long history of asthma and pulmonary nodules. She was under the care of a pulmonary group for many years. Unfortunately her refrigeration lead retired. During that process evaluation the patient was referred to [place] when she was also evaluated there for her ongoing respiratory symptoms in addition to pulmonary nodules. She has been stable on the Breo inhaler. the patient does have relief on her current respiratory regimen. We did talk about potential triggers. She has had allergy testing both with blood testing and more recently she has been evaluated by Allergy immunology which she had skin testing and does have typical allergies including molds and environmental allergens. She was placed on Xolair but she had adverse symptoms. She has had issues with high as and other rashes. She was referred to [place] for further evaluation. It was question if she would go back on Xolair as lower dose. she will continue following with Allergy immunology this time. the patient also describes going to [facility] just a few days ago with chest pain. She was ruled out for an WI. Her EKG was indeed abnormal demonstrating decrease R-wave progression. She was evaluated by her new primary care doctor and she will be undergoing additional testing for underlying cardiac disease at this time. The patient was a smoker and she quit more than 20 years ago. She did have a CT scan of the chest that was personally by me back in September 2020 at [facility] in [place]. She has underlying pulmonary nodules in addition to to some areas of tree in budding suggesting of bronchiolitis. These areas are scattered. She also has pulmonary nodules. We did talk about underlying obstructive airway disease in different conditions that can mimic asthma. In the meantime will start with repeating her pulmonary function studies and assessing her baseline. In addition to that will request blood work in order to further investigate her underlying condition. 04/23/2022 the patient is here for a pulmonary follow-up visit. Overall the patient has been doing relatively well. Cough is better. Although it is hard for her to tolerate the antimicrobial therapy. She does take it 3 times a week. We did review her sputum samples. She did have positive mycobacterial cultures in July. We did perform sensitivities demonstrating sensitive to both amikacin and also clarithromycin. Subsequently we repeated the sputum cultures sometime in the fall 2021 and recently did come back positive again for the same mycobacteria organism. Explained to the patient that is likely that she is responding to the therapy but she needs additional therapy. She is also stating that she sometimes takes the antacid close to her azithromycin. She will she will try to take it a different time. Meantime we talked about different options. One option be to increase her azithromycin to daily from 3 times a week. She can continue the other medications 3 times a week to minimize side effects. Another option is to continue with 3 times a day medication and add amikacin to her regimen. Both options will be reasonable. However, will try increasing the azithromycin since we know that is sensitive and will repeat her sputum in a month. I am hopeful that the sputum cultures come back negative. If for some reason she is not tolerating the daily azithromycin the making again continue with 3 times a week medication regimen and add a medication to the regimen. If at any point the patient does not tolerate the therapy or continues to have positive cultures then we talked about sending her to the [facility] for further assessment. Will follow-up in a few months. She does need to have a repeat CT scan to follow-up with pulmonary nodules hopefully in the spring. 07/22/2022 the patient is here for a pulmonary follow-up visit. Overall she is doing about the same. She still has a cough and at times is productive although sometimes difficult to expectorate. She continues to tolerate the azithromycin daily and she is also using the family do not rifampin 3 times a week. This which she has been able to tolerated better as far as the GI adverse effects. We did look at her cultures again. 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 After that we did increase her azithromycin to daily. Only after few weeks of being on the daily azithromycin the patient had a 3rd sputum sent and again quickly positive for mycobacterium avium complex. Clinically, the patient does continue to cough and continues to be symptomatic. Denies any weight loss or night sweats. She has underlying pulmonary nodules. In view of her ongoing symptoms will go ahead and repeat the CT scan to address of response to therapy and to see if any nodular progression is evident. In addition to that will start the process of starting the patient on inhaled amikacin to properly treat this ongoing smoldering infection that does not appear to be responding to the current regimen. Explained to her that it may be that she has been exposed to other mycobacterial organisms under way that a making it difficult. She tries to be very careful with her exposures however. Well will trying to optimize her antimycobacterial therapy will also refer her to the [facility] in order to further address the persistent positive mycobacterial cultures even on therapy. 09/01/2022 the patient is here for a sick visit. The patient started the amikacin as prescribed. She also continue with the other anti mycobacterial therapy. Unfortunately she started demonstrating some chest tightness and chest congestion. She notices a little specks of blood. It was minimal. Therefore the recommendation was for her to continue and just monitor. The next day she had more episodes of chest tightness and congestion and also little bit more bloods. Therefore she stopped it. She has been complaining of increasing cough chest congestion moderate severity. She has been using her inhaler with partial improvement. Denies any fevers or chills. She does complaint of some pleuritic chest discomfort primarily the left chest area on the side. On examination she does have rhonchi and wheezing throughout. I do not appreciate a focal exam although I believe she probably pulled a muscle on her left side. I have her get an x-ray just to make sure. In the meantime the patient will need some prednisone. She is going to hold off on the amikacin as this is causing her to have a significant inflammatory reaction. Does not appear to be tolerating it. She does have an appointment coming up at [facility] myc[facility]. She is going to hold off on the amikacin until she is evaluated. Will reassess once the patient is feeling better. In the office we did give her a DuoNeb treatment to try to help with the wheezing and also did collect the sputum for culture to make sure that she does not have any ongoing infectious process. We were able to get a lot of sputum but we did send in any way to see if it can be process. 09/24/2022 the patient is here for pulmonary follow-up visit. She is doing better now after having an adverse effect to the amikacin. She completed the prednisone completed the doxycycline. She is still off her anti mycobacterial therapy. The patient did follow-up in [place] and was evaluated by the [facility]. They did agree to stop the amikacin. They did recommend the patient start daily antimicrobial therapy with azithromycin, ethambutol and rifampin. Did recommend a higher dose of ethambutol as well. Therefore going to work on getting her back to that regimen. I am hopeful that we can start slowly in order for to tolerated. Will plan to monitor closely her sputum cultures in regards of her hemoptysis is now all resolved which is reassuring. 02/18/2023 the patient is here for a pulmonary follow-up visit. the patient has been complaining increasing dyspnea on exertion. Also worsening cough. Moderate severity. We did review her last PFTs from 2020 demonstrating moderate obstruction. Will go ahead and plan to repeat the PFTs at this time. Currently she is optimized with Trelegy. In addition to that she is concerned that she still has positive mycobacterial cultures. Now with a different organism, M. marseillense. she is concerned of home knee different mycobacterial strained she could have. We did talk about her potential exposures. 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 She does try to wear mask. Although it does not appear to be helpful. 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 In the meantime she is been off and on her Mycobacterial therapy. The patient has had some issues with GI side effects. Therefore she had to stop the medication for period of time during the BG when she was working and having issues with GI system. Subsequently after that the patient decided to hold off specially with this resistant organism. I did advise her to go back on the mycobacterial therapy as per the recommendations from the [facility]. Will request additional sensitivities from this mycobacterial strain. 05/05/2023 the patient is here for a pulmonary follow-up visit. The patient has been feeling better. She did have a respiratory illness a few weeks ago. She has not recovered. She also having a lot of productive sputum. She was concerned about the mycobacterial disease. In the meantime she has hard time tolerating the antimycobacterial therapy. She has only been taking the azithromycin 500 mg 7 days a week. Explained to him the concerns about the possibility of resistance. By taking monotherapy she can become resistant to the only medication that when most of the work. Therefore, she is agreeable to taking the triple therapy 3 times a week and then we can recheck her sputum hopefully in 3 months time. We also reviewed her EKG. She had an EKG done last month demonstrating some slight intraventricular conduction delay that was not convinced with. We had a repeat an EKG and was completely normal. QRS intervals are normal QT intervals are also normal. Therefore explained to her that is safe for her to take the azithromycin but she needs to be careful with any other medication interactions. The patient did have PFTs and we did review them. Appears that her FEV1 is improved from 1.59-1.79 L which is reassuring. She still has mild COPD. Her last CT scan was back in August 2022 demonstrating pulmonary nodules. Will plan to have her come back in the springtime after her CT scan to address her pulmonary nodules. At that time will also review her sputum and also recheck her EKG. I am hopeful that she is doing well and if her sputums are negative we can switch her to monotherapy. A S the the the the has a rectal down to a couple was not the the the a the lumen with the the the the the about it I forget p.o. diet g IV that will admit about the dialed up at [facility] unaware that whole device and a little bit of weight going without emesis I shot a barely noticeable point abnormal we downloaded the it a little better appointment in the the will reassess and ileus of vitals does happens under local [facility] does he can supplement a after a does more reasonable a hello ago when she had to pay the head or coughing more the the the the nebulized tested be in no should exercise the the LQ if perhaps 09/08/2023 the patient is here for a pulmonary follow-up visit. Overall the patient has been doing well respiratory whatley seems to be responding well to the therapy. Denies any worsening shortness breath or cough. She is also working on weight loss which is reassuring. In the meantime the patient has been using her anti mycobacterial therapy 3 times a week. She seems to be tolerating that well. She did not tolerate the daily therapy. The patient unfortunately had sputum demonstrating again mycobacterial disease seems like can not seem to clear this organism. She has been working in the garden but she has wearing a mask. We also did look at her CT scan of the chest that she had recently August 2023 and we did compare to 2022 in addition to 2019. When compared to 2019 there seems to be significant improvement in the parenchymal disease in the air space disease. Suggesting that she has been responding to therapy but slowly. Will plan to continue with the 3 times a week on anti-mycobacterial therapy. The patient understands that the only limiting issue is the fact that we arranged the duration therapy when she has a negative sputum. We will plan to collect another sputum in the next 3 months. 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 Atopic dermatitis Bronchiolitis Pulmonary nodules Asthma Social History (Updated 05/27/21 @ 15:26 by Lena Torres Sade) Patient Tobacco Use Status: Former Tobacco user Tobacco use type: Cigarette Years Smoked: Quit 1998 20 years Review of Systems Const Denies night sweats ENT Denies change in voice, Denies hoarseness, Denies lip swelling, Denies mouth pain, Reports nasal congestion, Reports nasal discharge and Denies tongue swelling Card Denies chest pain and Denies dyspnea on exertion Resp Denies chest congestion, Reports cough, Denies hemoptysis, Denies dyspnea on exertion and Denies wheezing GI Denies abdominal pain, Reports bloating, Denies hematochezia, Reports change in bowel habits, Reports loose stools and Reports nausea Musc Denies no additional complaints and Reports joint swelling Skin/Breast Denies rash and Denies skin swelling Neuro Denies Neuro-related abnormal movements Psych Denies no additional complaints Quentin/Lymph Denies easy bleeding and Denies lymphadenopathy Aller/Immun Denies lip swelling, Denies tongue swelling and Denies wheezing Physical Exam Vital Signs: Last Vital Signs Pulse 73 09/08/23 09:29 Pulse Ox 94 09/08/23 09:29 Oxygen Delivery Method Room Air 04/30/24 09:29 BMI result Body Mass Index 35.5 Const General: alert Neck Neck: Yes normal visual inspection, Yes full ROM and Yes no lymphadenopathy Chest Chest palpation & inspection: normal inspection of the chest Resp Effort & Inspection: No prolonged expiratory phase Auscultation: no crackles, no rales, no rhonchi, no wheezes and diminished lung sounds Cardio Rate: regular rate Rhythm: regular rhythm Heart sounds: S1 normal heart sound present and S2 normal heart sound present GI Palpation (GI): Soft to palpation and nontender Auscultation: normal bowel sounds General: Yes no CVA tenderness Back/Spine/Pelvis Back: no CVA tenderness Skin General skin exam: rashes and/or lesions noted Assessment & Plan Assessment & Plan (1) 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 avium complex; M.CHIMAERA INTRACELLULARE; M. avium complex Code(s): A31.0 - Pulmonary mycobacterial infection Category: Medical (2) Asthma-COPD overlap syndrome: Code(s): J44.9 - Chronic obstructive pulmonary disease, unspecified Category: Medical (3) Pulmonary nodules: Code(s): R91.8 - Other nonspecific abnormal finding of lung field Category: Medical (4) Bronchiolitis: Code(s): J21.9 - Acute bronchiolitis, unspecified Category: Medical Plan Continue Trelegy 200 GLADYS as needed continue Azithromycin MWF continue Rifampin/Ethambutol MWF Avoid saunas, poorly ventilated hot tubes and direct exposure to soil. Should invest on a respirator when working with soil repeat sputm AFB in 3 months F/U in 4-6 months Orders: Orders Acid-fast Culture + Smear Today A31.0 - Pulmonary mycobacterial infection Coding Level of Care Code Est Pt Level 4 (36391) Diagnoses Nontuberculous mycobacterial disease of lung A31.0 Asthma-COPD overlap syndrome J44.9 Pulmonary nodules R91.8 Bronchiolitis J21.9 Time Spent (min) 18
[2023-09-08 09:29] VITALS: PULSE 73; O2SAT 94; BMI 35.5
== END 2023-09-08 10:00 | disposition home or self-care (01) ==
PROVIDERS: PCP Internal Medicine; Visit Provider Hospitalist
DX: J44.9 Chronic obstructive pulmonary disease, unspecified (principal); A31.0 Pulmonary mycobacterial infection; R91.8 Other nonspecific abnormal finding of lung field
CPT/HCPCS: 99214

== ENCOUNTER → 2023-09-08 09:24 | Outpatient (BNVA) | payer BC, SELFPAY | PROVIDERS: PCP Internal Medicine; Visit Provider Hospitalist | DX: J44.9 Chronic obstructive pulmonary disease, unspecified (principal); A31.0 Pulmonary mycobacterial infection ==

== ENCOUNTER 2023-12-02 15:49 | Outpatient (REF) | payer BC, SELFPAY | END 2023-12-02 15:50 | disposition home or self-care (01) | LOC: HO.LNP 15:49 | PROVIDERS: Visit Provider Hospitalist | DX: A31.0 Pulmonary mycobacterial infection (principal) | CPT/HCPCS: 87116; 87206 ==

== ENCOUNTER 2024-01-05 10:10 | Outpatient (REF) | payer BC, SELFPAY ==
--- NOTE | 2024-01-05 10:49 | ECG_ITS ---
Test Reason : COPD Blood Pressure : / mmHG Vent. Rate : 064 BPM Atrial Rate : 064 BPM P-R Int : 162 ms QRS Dur : 086 ms QT Int : 434 ms P-R-T Axes : 053 -14 039 degrees QTc Int : 447 ms Normal sinus rhythm Normal ECG When compared with ECG of 04-SEP-2023 13:49, No significant change was found Referred By: Jaskaran Bond Electronically Signed By:MELANIE COLVIN
[2024-01-05 11:04] LABS: MANUAL DIFF FLAG NO
[2024-01-05 11:21] LABS: Basophils Percent Auto 0.4 % (0-2); Eosinophils Absolute Auto 0.1 X10*3/uL (0.0-0.4); Eosinophils Percent Auto 1.5 % (0-4); Hematocrit 42.6 % (37.0-47.0); Hemoglobin 14.8 g/dl (12.0-16.0); Imm Gran Abs Auto 0.01 X10*3/uL (0.00-0.03); Imm Gran Pct Auto 0.2 % (0.0-0.4); Lymphocytes Absolute Auto 1.2 X10*3/uL (1.2-4.9); Lymphocytes Percent Auto 23.2 % (20-40); Mean Corpuscular HGB Conc 34.7 g/dl (31.0-35.0); Mean Corpuscular Hemoglobin 32.7 pg (27.0-33.0); Mean Platelet Volume 9.9 fL (9.4-12.3); Monocytes Absolute Auto 0.3 X10*3/uL (0.1-1.2); Neutrophils Absolute Auto 3.6 x10*3/uL (2.0-8.3); Neutrophils Percent Auto 68.7 % (45-73); Platelet Count 218 X10*3/uL (160-400); Red Blood Count 4.53 X10*6/uL (4.20-5.50); Red Cell Distribution Width 13.1 % (11.0-16.0); White Blood Count 5.2 X10*3/uL (4.8-10.8)
[2024-01-05 12:00] LABS: Alanine Aminotransferase 27 U/L (0-31); Albumin Level 4.3 g/dL (3.5-5.0); Alkaline Phosphatase 69 U/L (39-117); Anion Gap 12 (12-20); Aspartate Amino Transferase 19 U/L (5-31); Bilirubin Direct 0.2 mg/dL (0.0-0.5); Bilirubin Total 0.6 mg/dL (0.0-1.0); Blood Urea Nitrogen 16 mg/dL (9-16); Carbon Dioxide 32 mmol/L (22-29); Chloride 102 mmol/L (96-108); Estimated Glomerular Filt Rate > 60; Glucose Random 99 mg/dL (60-115); Potassium 3.6 mmol/L (3.3-5.1); Sodium 142 mmol/L (135-145); Total Protein 6.8 g/dL (6.5-8.0)
[2024-01-05 12:01] LABS: Erythrocyte Sedimentation Rate 8 MM/HR (0-20)
== END 2024-01-05 10:11 | disposition home or self-care (01) ==
LOC: HO.LAB 10:10
PROVIDERS: PCP Internal Medicine; Visit Provider Hospitalist
DX: J44.9 Chronic obstructive pulmonary disease, unspecified (principal); A31.0 Pulmonary mycobacterial infection
CPT/HCPCS: 36415; 80048; 80076; 85025; 85652; 93005

== ENCOUNTER 2024-01-05 10:10 | Outpatient (AMB) | payer BC, SELFPAY ==
--- NOTE | 2024-01-05 10:13 | MHC.OFFVIS ---
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 She was under the care of a pulmonary group for many years. 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 During that process evaluation the patient was referred to [facility] when she was also evaluated there for her ongoing respiratory symptoms in addition to pulmonary nodules. She has been stable on the Breo inhaler. the patient does have relief on her current respiratory regimen. We did talk about potential triggers. She has had allergy testing both with blood testing and more recently she has been evaluated by Allergy immunology which she had skin testing and does have typical allergies including molds and environmental allergens. She was placed on Xolair but she had adverse symptoms. She has had issues with high as and other rashes. She was referred to [facility] for further evaluation. It was question if she would go back on Xolair as lower dose. she will continue following with Allergy immunology this time. the patient also describes going to [facility] just a few days ago with chest pain. She was ruled out for an SD. Her EKG was indeed abnormal demonstrating decrease R-wave progression. She was evaluated by her new primary care doctor and she will be undergoing additional testing for underlying cardiac disease at this time. The patient was a smoker and she quit more than 20 years ago. She did have a CT scan of the chest that was personally by me back in September 2020 at [facility] in [place]. She has underlying pulmonary nodules in addition to to some areas of tree in budding suggesting of bronchiolitis. These areas are scattered. She also has pulmonary nodules. We did talk about underlying obstructive airway disease in different conditions that can mimic asthma. In the meantime will start with repeating her pulmonary function studies and assessing her baseline. In addition to that will request blood work in order to further investigate her underlying condition. 05/05/2023 the patient is here for a pulmonary follow-up visit. The patient has been feeling better. She did have a respiratory illness a few weeks ago. She has not recovered. She also having a lot of productive sputum. She was concerned about the mycobacterial disease. In the meantime she has hard time tolerating the antimycobacterial therapy. She has only been taking the azithromycin 500 mg 7 days a week. Explained to him the concerns about the possibility of resistance. By taking monotherapy she can become resistant to the only medication that when most of the work. Therefore, she is agreeable to taking the triple therapy 3 times a week and then we can recheck her sputum hopefully in 3 months time. We also reviewed her EKG. She had an EKG done last month demonstrating some slight intraventricular conduction delay that was not convinced with. We had a repeat an EKG and was completely normal. QRS intervals are normal QT intervals are also normal. Therefore explained to her that is safe for her to take the azithromycin but she needs to be careful with any other medication interactions. The patient did have PFTs and we did review them. Appears that her FEV1 is improved from 1.59-1.79 L which is reassuring. She still has mild COPD. Her last CT scan was back in August 2022 demonstrating pulmonary nodules. Will plan to have her come back in the springtime after her CT scan to address her pulmonary nodules. At that time will also review her sputum and also recheck her EKG. I am hopeful that she is doing well and if her sputums are negative we can switch her to monotherapy. A S the the the the has a rectal down to a couple was not the the the a the lumen with the the the the the about it I forget p.o. diet g IV that will admit about the dialed up at [facility] unaware that whole device and a little bit of weight going without emesis I shot a barely noticeable point abnormal we downloaded the it a little better appointment in the the will reassess and ileus of vitals does happens under local his [facility] scan does he can supplement a after a does more reasonable a hello ago when she had to pay the head or coughing more the the the the nebulized tested be in no should exercise the the LQ if perhaps 09/08/2023 the patient is here for a pulmonary follow-up visit. Overall the patient has been doing well respiratory whatley seems to be responding well to the therapy. Denies any worsening shortness breath or cough. She is also working on weight loss which is reassuring. In the meantime the patient has been using her anti mycobacterial therapy 3 times a week. She seems to be tolerating that well. She did not tolerate the daily therapy. The patient unfortunately had sputum demonstrating again mycobacterial disease seems like can not seem to clear this organism. She has been working in the garden but she has wearing a mask. We also did look at her CT scan of the chest that she had recently August 2023 and we did compare to 2022 in addition to 2019. When compared to 2019 there seems to be significant improvement in the parenchymal disease in the air space disease. Suggesting that she has been responding to therapy but slowly. Will plan to continue with the 3 times a week on anti-mycobacterial therapy. The patient understands that the only limiting issue is the fact that we arranged the duration therapy when she has a negative sputum. We will plan to collect another sputum in the next 3 months. 01/05/2024 the patient is here for a pulmonary follow-up visit. Overall she is doing very well. Denies any respiratory complaints. She does continue her respiratory medications and also the Xolair. She also continues with the antimycobacterial therapy 3 times a week. She has been tolerating well. The patient unfortunately had another sputum positive for non tuberculosis mycobacterial disease. Will go ahead and be sent for sensitivities. Will also request a CT scan of the chest in 08/28/2024. The patient has not been able to tolerate augmentation of the antimycobacterial therapy because of adverse effects.. Is reassuring that she is feeling well. Will go ahead and continue the current therapy although we will request sensitivities to further assess any potential changes in her management. Today she is going to undergo blood work and an EKG while she is on the antimycobacterial therapy. The patient will follow-up in August after her CT scan although she can always call if she is having any new or concerning issues. 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 Atopic dermatitis Bronchiolitis Pulmonary nodules Asthma Social History (Updated 05/27/21 @ 15:26 by JAY Espinoza) Patient Tobacco Use Status: Former Tobacco user Tobacco use type: Cigarette Years Smoked: Quit 1998 20 years Review of Systems Const Denies night sweats and Reports weight loss ENT Denies change in voice, Denies hoarseness, Denies lip swelling, Denies mouth pain, Denies nasal congestion and Denies tongue swelling Card Denies chest pain and Denies dyspnea on exertion Resp Denies chest congestion, Reports cough, Denies hemoptysis, Denies dyspnea on exertion and Denies wheezing GI Denies abdominal pain, Reports bloating, Denies hematochezia, Reports change in bowel habits, Reports loose stools and Reports nausea Musc Denies no additional complaints and Reports joint swelling Skin/Breast Denies rash and Denies skin swelling Neuro Denies Neuro-related abnormal movements Psych Denies no additional complaints Quentin/Lymph Denies easy bleeding and Denies lymphadenopathy Aller/Immun Denies lip swelling, Denies tongue swelling and Denies wheezing Physical Exam Vital Signs: Last Vital Signs Pulse 77 01/05/24 10:15 Pulse Ox 95 01/05/24 10:15 Oxygen Delivery Method Room Air 01/05/24 10:15 BMI result Body Mass Index 31.4 Const General: alert Neck Neck: Yes normal visual inspection, Yes full ROM and Yes no lymphadenopathy Chest Chest palpation & inspection: normal inspection of the chest Resp Effort & Inspection: normal respiratory effort and No prolonged expiratory phase Auscultation: clear to auscultation bilaterally, no crackles, no rales, no rhonchi and no wheezes Cardio Rate: regular rate Rhythm: regular rhythm Heart sounds: S1 normal heart sound present and S2 normal heart sound present GI Palpation (GI): Soft to palpation and nontender Auscultation: normal bowel sounds General: Yes no CVA tenderness Back/Spine/Pelvis Back: no CVA tenderness Skin General skin exam: rashes and/or lesions noted Assessment & Plan Assessment & Plan (1) Nontuberculous mycobacterial disease of lung: Comment: M. marseillense->M. avium complex->M.CHIMAERA INTRACELLULARE->M. avium complex->M.CHIMAERA INTRACELLULARE Code(s): A31.0 - Pulmonary mycobacterial infection Category: Medical (2) Asthma-COPD overlap syndrome: Code(s): J44.9 - Chronic obstructive pulmonary disease, unspecified Category: Medical (3) Pulmonary nodules: Code(s): R91.8 - Other nonspecific abnormal finding of lung field Category: Medical (4) Bronchiolitis: Code(s): J21.9 - Acute bronchiolitis, unspecified Category: Medical Plan Continue Trelegy 200 GLADYS as needed continue Azithromycin MWF continue Rifampin/Ethambutol MWF Avoid saunas, poorly ventilated hot tubes and direct exposure to soil. Should invest on a respirator when working with soil repeat sputm AFB in 4-[address] chest 07/2023 F/U in 6 months Orders: Orders Complete Blood Count Auto Diff Today A31.0 - Pulmonary mycobacterial infection, J44.9 - Chronic obstructive pulmonary disease, unspecified Liver Panel Today A31.0 - Pulmonary mycobacterial infection, J44.9 - Chronic obstructive pulmonary disease, unspecified Erythrocyte Sedimentation Rate Today A31.0 - Pulmonary mycobacterial infection, J44.9 - Chronic obstructive pulmonary disease, unspecified ECG 12 lead EKG Today A31.0 - Pulmonary mycobacterial infection, J44.9 - Chronic obstructive pulmonary disease, unspecified Sputum Cult + Gram stain 4 Months A31.0 - Pulmonary mycobacterial infection Acid-fast Culture + Smear 4 Months A31.0 - Pulmonary mycobacterial infection Basic Metabolic Panel 4 Months A31.0 - Pulmonary mycobacterial infection Liver Panel 4 Months A31.0 - Pulmonary mycobacterial infection Erythrocyte Sedimentation Rate 4 Months A31.0 - Pulmonary mycobacterial infection Basic Metabolic Panel Today A31.0 - Pulmonary mycobacterial infection, J44.9 - Chronic obstructive pulmonary disease, unspecified CT chest wo IV con 07/25/24 R91.8 - Other nonspecific abnormal finding of lung field Complete Blood Count Auto Diff 4 Months A31.0 - Pulmonary mycobacterial infection Coding Level of Care Code Est Pt Level 4 (78520) Complex EM visit Add On G2211 Diagnoses Nontuberculous mycobacterial disease of lung A31.0 Asthma-COPD overlap syndrome J44.9 Pulmonary nodules R91.8 Bronchiolitis J21.9 Time Spent (min) 17
[2024-01-05 10:15] VITALS: PULSE 77; O2SAT 95; BMI 31.4
== END 2024-01-05 10:38 | disposition home or self-care (01) ==
PROVIDERS: PCP Internal Medicine; Visit Provider Hospitalist
DX: A31.0 Pulmonary mycobacterial infection (principal); J44.9 Chronic obstructive pulmonary disease, unspecified; R91.8 Other nonspecific abnormal finding of lung field; J21.9 Acute bronchiolitis, unspecified
CPT/HCPCS: 99214

== ENCOUNTER 2024-07-20 14:22 | Outpatient (REF) | payer BC, SELFPAY ==
--- OUTSIDE RECORDS SUMMARY | 2024-07-20 16:55 | XMS_ITS | Clinical Summary ---
Author Organization [facility] it Address [address] [place] [address] Care Team Providers Care Microbiology Quality Control Technician Name Role Phone Carl Flores MD Primary Care Provider [phone] Social History Tobacco Use Types Packs/Day Years Used Date Smoking Tobacco: Never Assessed Comments Unknown Sex and Gender Information Value Date Recorded Sex Assigned at Not on file Legal Sex Female 1:32 AM EST Gender Identity Not on file Sexual Orientation Not on file Plan of Treatment Health Maintenance Due Date Last Done Comments Breast Cancer Screening 1955 DTaP,Tdap,and Td Vaccines (1 - Tdap) 1976 Pneumococcal Vaccine: 50+ Ye ars (1 of 1 - PCV) 09/28/2007 Zoster Vaccines (1 of 2) 09/28/2007 Colorectal Cancer Screening: Colonoscopy 04/13/2022 Depression Screening 04/13/2022 Hepatitis C Screening 04/13/2022 Osteoporosis Screening (Bone Density Screening) 04/13/2022 Social Influencers of Health Screening 04/13/2022 Falls Risk Assessment 2022 COVID-19 Vaccine ( - 2023-2 5 season) 2024 Influenza Vaccine (#1) 2024 RSV Immunization Patients 60 + Years Old (1 - 1-dose 75+ series) 2032 HIB Vaccines Aged Out No longer eligi ble based on patient's age to complete this topic HPV Vaccines Aged Out No longer eligi ble based on patient's age to complete this topic Hepatitis A Vaccines Aged Out No long er eligible based on patient's age to complete this topic Hepatitis B Vaccines Aged Out No long er eligible based on patient's age to complete this topic IPV Vaccines Aged Out No longer eligi ble based on patient's age to complete this topic MMR Vaccines Aged Out No longer eligi ble based on patient's age to complete this topic Meningococcal ACWY Vaccine Aged Out N o longer eligible based on patient's age to complete this topic Meningococcal B Vacine Aged Out No lo nger eligible based on patient's age to complete this topic RSV Immunization Patients Un courtney 20 months Aged Out No longer eligible b ased on patient's age to complete this topic Varicella Vaccines Aged Out No longer eligible based on patient's age to complete this topic Care Teams Microbiology Quality Control Technician Relationship Specialty Start Date End Date Carl Flores MD [address] [place] [address] [facility] [address] [facility] [place], [place] PCP - General 01/30/10
== END 2024-07-20 14:23 | disposition home or self-care (01) ==
LOC: HO.LNP 14:22
PROVIDERS: Visit Provider Hospitalist
DX: A31.0 Pulmonary mycobacterial infection (principal)
CPT/HCPCS: 87070; 87116; 87205; 87206

== ENCOUNTER 2024-08-26 09:57 | Outpatient (AMB) | payer BC, SELFPAY ==
--- NOTE | 2024-08-26 10:02 | MHC.OFFVIS ---
Vital Signs 08/26/24 10:03 Height 5 ft 5 in Weight 173 lb 1.006 oz BMI 28.8 BP 120/72 Blood Pressure Location Rt brachial Position Sitting Pulse 67 Pulse Source Pulse Oximeter Pulse Oximetry (%) 97 Oxygen Delivery Method Room Air Intake Visit Reasons: Asthma Allergies amoxicillin Allergy (Severe, Verified 08/26/24 10:07) Rash contact metal agent Allergy (Severe, Verified 08/26/24 10:07) Hives amikacin Adverse Reaction (Severe, Verified 08/26/24 10:07) Shortness of Breath HPI Comments Details: The patient is a 68-year-old woman with a long history of asthma and pulmonary nodules. She was under the care of a pulmonary group for many years. 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 During that process evaluation the patient was referred to [facility] when she was also evaluated there for her ongoing respiratory symptoms in addition to pulmonary nodules. She has been stable on the Breo inhaler. the patient does have relief on her current respiratory regimen. We did talk about potential triggers. She has had allergy testing both with blood testing and more recently she has been evaluated by Allergy immunology which she had skin testing and does have typical allergies including molds and environmental allergens. She was placed on Xolair but she had adverse symptoms. She has had issues with high as and other rashes. She was referred to [facility] for further evaluation. It was question if she would go back on Xolair as lower dose. she will continue following with Allergy immunology this time. the patient also describes going to [facility] just a few days ago with chest pain. She was ruled out for an KS. Her EKG was indeed abnormal demonstrating decrease R-wave progression. She was evaluated by her new primary care doctor and she will be undergoing additional testing for underlying cardiac disease at this time. The patient was a smoker and she quit more than 20 years ago. She did have a CT scan of the chest that was personally by me back in September 2020 at [facility] in [place]. She has underlying pulmonary nodules in addition to to some areas of tree in budding suggesting of bronchiolitis. These areas are scattered. She also has pulmonary nodules. We did talk about underlying obstructive airway disease in different conditions that can mimic asthma. In the meantime will start with repeating her pulmonary function studies and assessing her baseline. In addition to that will request blood work in order to further investigate her underlying condition. 05/05/2023 the patient is here for a pulmonary follow-up visit. The patient has been feeling better. She did have a respiratory illness a few weeks ago. She has not recovered. She also having a lot of productive sputum. She was concerned about the mycobacterial disease. In the meantime she has hard time tolerating the antimycobacterial therapy. She has only been taking the azithromycin 500 mg 7 days a week. Explained to him the concerns about the possibility of resistance. By taking monotherapy she can become resistant to the only medication that when most of the work. Therefore, she is agreeable to taking the triple therapy 3 times a week and then we can recheck her sputum hopefully in 3 months time. We also reviewed her EKG. She had an EKG done last month demonstrating some slight intraventricular conduction delay that was not convinced with. We had a repeat an EKG and was completely normal. QRS intervals are normal QT intervals are also normal. Therefore explained to her that is safe for her to take the azithromycin but she needs to be careful with any other medication interactions. The patient did have PFTs and we did review them. Appears that her FEV1 is improved from 1.59-1.79 L which is reassuring. She still has mild COPD. Her last CT scan was back in August 2022 demonstrating pulmonary nodules. Will plan to have her come back in the springtime after her CT scan to address her pulmonary nodules. At that time will also review her sputum and also recheck her EKG. I am hopeful that she is doing well and if her sputums are negative we can switch her to monotherapy. A S the the the the has a rectal down to a couple was not the the the a the lumen with the the the the the about it I forget p.o. diet g IV that will admit about the dialed up at [facility] unaware that whole device and a little bit of weight going without emesis I shot a barely noticeable point abnormal we downloaded the it a little better appointment in the the will reassess and ileus of vitals does happens under local [facility] does he can supplement a after a does more reasonable a hello ago when she had to pay the head or coughing more the the the the nebulized tested be in no should exercise the the LQ if perhaps 09/08/2023 the patient is here for a pulmonary follow-up visit. Overall the patient has been doing well respiratory whatley seems to be responding well to the therapy. Denies any worsening shortness breath or cough. She is also working on weight loss which is reassuring. In the meantime the patient has been using her anti mycobacterial therapy 3 times a week. She seems to be tolerating that well. She did not tolerate the daily therapy. The patient unfortunately had sputum demonstrating again mycobacterial disease seems like can not seem to clear this organism. She has been working in the garden but she has wearing a mask. We also did look at her CT scan of the chest that she had recently August 2023 and we did compare to 2022 in addition to 2019. When compared to 2019 there seems to be significant improvement in the parenchymal disease in the air space disease. Suggesting that she has been responding to therapy but slowly. Will plan to continue with the 3 times a week on anti-mycobacterial therapy. The patient understands that the only limiting issue is the fact that we arranged the duration therapy when she has a negative sputum. We will plan to collect another sputum in the next 3 months. 01/05/2024 the patient is here for a pulmonary follow-up visit. Overall she is doing very well. Denies any respiratory complaints. She does continue her respiratory medications and also the Xolair. She also continues with the antimycobacterial therapy 3 times a week. She has been tolerating well. The patient unfortunately had another sputum positive for non tuberculosis mycobacterial disease. Will go ahead and be sent for sensitivities. Will also request a CT scan of the chest in 08/28/2024. The patient has not been able to tolerate augmentation of the antimycobacterial therapy because of adverse effects.. Is reassuring that she is feeling well. Will go ahead and continue the current therapy although we will request sensitivities to further assess any potential changes in her management. Today she is going to undergo blood work and an EKG while she is on the antimycobacterial therapy. The patient will follow-up in August after her CT scan although she can always call if she is having any new or concerning issues. 08/26/2024 the patient is here for a pulmonary follow-up visit. Overall she is doing well. He continues on the antimicrobial therapy 3 times a week. She seems to be tolerating this regimen most. She did have another sputum sent back in 07/28/2019 25. Unfortunately did come back positive for AFB just yesterday. Seems that he is thinking longer longer. Will see with the identification of the mycobacterial will be this time. In the meantime she did have a CT scan of the chest which I personally reviewed demonstrating some stability of the nodular densities and she does have some areas of atelectasis but otherwise no evidence of any progressive disease. So overall she is responding well to the therapy will continue her on the therapy at this time. The issue is based on the fact that she continues to test positive for AFB is difficult to know the duration of the therapy since she is still positive. So for now she is on the therapy indefinitely as long she can not tolerated. Sorry nodules are stable she will have another CAT scan in a year's time. She also has a little bit of emphysema which is stable. 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 Atopic dermatitis Bronchiolitis Pulmonary nodules Asthma Social History Patient Tobacco Use Status: Former Tobacco user Tobacco use type: Cigarette Years Smoked: Quit 1998 20 years Review of Systems Const Denies night sweats and Reports weight loss ENT Denies change in voice, Denies hoarseness, Denies lip swelling, Denies mouth pain, Denies nasal congestion and Denies tongue swelling Card Denies chest pain and Denies dyspnea on exertion Resp Denies chest congestion, Reports cough, Denies hemoptysis, Denies dyspnea on exertion and Denies wheezing GI Denies abdominal pain, Reports bloating, Denies hematochezia, Reports change in bowel habits, Reports loose stools and Reports nausea Musc Denies no additional complaints and Reports joint swelling Skin/Breast Denies rash and Denies skin swelling Neuro Denies Neuro-related abnormal movements Psych Denies no additional complaints Quentin/Lymph Denies easy bleeding and Denies lymphadenopathy Aller/Immun Denies lip swelling, Denies tongue swelling and Denies wheezing Physical Exam Vital Signs: Last Vital Signs Pulse 67 08/26/24 10:03 BP 120/72 08/26/24 10:03 Pulse Ox 97 08/26/24 10:03 Oxygen Delivery Method Room Air 08/26/24 10:03 BMI result Body Mass Index 28.8 Const General: alert Neck Neck: Yes normal visual inspection, Yes full ROM and Yes no lymphadenopathy Chest Chest palpation & inspection: normal inspection of the chest Resp Effort & Inspection: normal respiratory effort and No prolonged expiratory phase Auscultation: clear to auscultation bilaterally, no crackles, no rales, no rhonchi and no wheezes Cardio Rate: regular rate Rhythm: regular rhythm Heart sounds: S1 normal heart sound present and S2 normal heart sound present GI Palpation (GI): Soft to palpation and nontender Auscultation: normal bowel sounds General: Yes no CVA tenderness Back/Spine/Pelvis Back: no CVA tenderness Skin General skin exam: rashes and/or lesions noted Assessment & Plan Assessment & Plan (1) Nontuberculous mycobacterial disease of lung: Comment: M. marseillense->M. avium complex->M.CHIMAERA INTRACELLULARE->M. avium complex->M.CHIMAERA INTRACELLULARE->+AFB (ID pending) Code(s): A31.0 - Pulmonary mycobacterial infection Category: Medical (2) Asthma-COPD overlap syndrome: Code(s): J44.9 - Chronic obstructive pulmonary disease, unspecified Category: Medical (3) Pulmonary nodules: Code(s): R91.8 - Other nonspecific abnormal finding of lung field Category: Medical (4) Bronchiolitis: Code(s): J21.9 - Acute bronchiolitis, unspecified Category: Medical Plan Continue Trelegy 200 GLADYS as needed continue Azithromycin MWF continue Rifampin/Ethambutol MWF duration difficult based on the continued positive sputum Avoid saunas, poorly ventilated hot tubes and direct exposure to soil, and pond. Respirator when working with soil or in the pond repeat sputm AFB +, pending ID repeat CT chest 07/2024 looks better/stable F/U in 4 months Orders: Orders ECG 12 lead EKG 08/26/24 A31.0 - Pulmonary mycobacterial infection, J44.9 - Chronic obstructive pulmonary disease, unspecified Complete Blood Count Auto Diff 08/26/24 A31.0 - Pulmonary mycobacterial infection, J44.9 - Chronic obstructive pulmonary disease, unspecified Immunoglobulin E 08/26/24 A31.0 - Pulmonary mycobacterial infection, J44.9 - Chronic obstructive pulmonary disease, unspecified T Spot TB 08/26/24 A31.0 - Pulmonary mycobacterial infection, J44.9 - Chronic obstructive pulmonary disease, unspecified Basic Metabolic Panel 08/26/24 A31.0 - Pulmonary mycobacterial infection, J44.9 - Chronic obstructive pulmonary disease, unspecified Liver Panel 08/26/24 A31.0 - Pulmonary mycobacterial infection, J44.9 - Chronic obstructive pulmonary disease, unspecified Erythrocyte Sedimentation Rate 08/26/24 A31.0 - Pulmonary mycobacterial infection, J44.9 - Chronic obstructive pulmonary disease, unspecified Coding Level of Care Code Est Pt Level 4 (13671) Complex EM visit Add On G2211 Diagnoses Nontuberculous mycobacterial disease of lung A31.0 Asthma-COPD overlap syndrome J44.9 Pulmonary nodules R91.8 Bronchiolitis J21.9 Time Spent (min) 30
[2024-08-26 10:03] VITALS: BP 120/72; PULSE 67; O2SAT 97; BMI 28.8
--- OUTSIDE RECORDS SUMMARY | 2024-08-26 10:44 | XMS_ITS | Continuity of Care Document ---
Author Organization [facility] Address [address] [place] [address] Phone Care Team Providers Care Assistant Facility Manager Name Role Phone Aj HARDWICK FACS RVT Zane ABDI Unavailable Unavailable Allergies, Adverse Reactions, Alerts Substance Reaction Status Criticality NEBULIZER ACCESSORIES Active No Inf ormation AMIKACIN SULFATE LIPOSOMAL Active N o Information amoxicillin Active No Information Medications Medication Instructions Dosage Effective Dates (start - stop) Status Comments hydrochlorothiazide 25 mg tablet - Active azithromycin 500 mg tablet - Active rifampin 300 mg capsule - Ac tive ethambutol 400 mg tablet - A ctive Xyzal 5 mg tablet - Active Procedures Procedure Date Sngl/mx Inj Scleros-veins; Guevara 23 No Charge For Services Advance Directives Directive Yes / No Effective Date File Name No Information Encounters Encounter Description Practice Location Reason(s) For Visit Diagnoses Date Provider Providers Copied on Encounter [facility], [address], [place], [id number], [place] tel:[phone] [facility] No Information 3 Aj HARDWICK FACS ROSST JIN Polanco. [address], [address], [place], [address], [place]. tel:[phone] Referring Provider: Jason Penaloza MD, [address], [place], [address]. tel:[phone] [facility], [address], [place], [id number], [place] tel:[phone] [facility] Encounter for cosmetic surgery 3 Clarke Rudolph. [address], [place], [id number], [place]. tel:[phone] Referring Provider: Jason Penaloza MD, [address], [place], [address]. tel:[phone] [facility], [address], [place], [id number], [place] tel:[phone] [facility] [place] [facility] [place] Encounter for cosmetic surgery 3 Clarke Rudolph. [address] [facility] [address] [address], [place], [id number], [place]. tel:[phone] Referring Provider: Jason Penaloza MD, [address], [place], [address]. tel:[phone] Family History Family Member Type Diagnosis Age At Onset No Information Payers Payer name Insurance type Covered democrat ID Authoriza tiraul(s) Self Pay 09 Social History Type Description Quantity Date Captured Comments Alcohol Use Details Unknown Caffeine Use Details Unknown Tobacco Use Status No Information Smoking Status No Information Sex Female Chief Complaint And Reason For Visit No Information Reason For Referral Reason For Referral No Information History Of Present Illness Encounter Date Complaint History Of Prese nt Illness No Information Functional Status Date Functional Assessmen t No Information Instructions Date Instruction Additional Infor mation No Information Assessments Type Assessment Date No Information Patient Care Teams Name Effective Dates (start - stop) Status Members No Information
--- OUTSIDE RECORDS SUMMARY | 2024-08-26 10:44 | XMS_ITS | Clinical Summary ---
Author Organization [facility] ity Address [address] [place] [address] Care Team Providers Care Tools And Parts Attendant Name Role Phone Carl Flores MD Primary Care Provider [phone] Social History Tobacco Use Types Packs/Day Years [...] 2) 09/28/2007 Colorectal Cancer Screening: Colonoscopy 04/13/2022 Osteoporosis Screening (Bone Density Screening) 04/13/2022 COVID-19 Vaccine ( - 2023-2 5 season) 2024 Influenza Vaccine (Season Ended) 2025 RSV Immunization Adult Patie nts (1 - 1-dose 75+ series) 2032 HIB [...] age to complete this topic Meningococcal B Vaccine Aged Out No l onger eligible based on patient's age to complete this topic RSV Immunization Patients Un courtney 20 months Aged Out No longer eligible b ased on patient's age to complete this topic Varicella Vaccines Aged Out No longer eligible based on patient's age to complete this topic Care Teams Tools And Parts Attendant Relationship Specialty Start Date End Date Carl Flores MD [address] [place] [address] [facility] [address] [place], [place] PCP - General 01/30/10
== END 2024-08-26 10:42 | disposition home or self-care (01) ==
LOC: HO.HPS 09:58
PROVIDERS: PCP Internal Medicine; Visit Provider Hospitalist
DX: A31.0 Pulmonary mycobacterial infection (principal); J44.9 Chronic obstructive pulmonary disease, unspecified; R91.8 Other nonspecific abnormal finding of lung field; J21.9 Acute bronchiolitis, unspecified
CPT/HCPCS: 99214

== ENCOUNTER → 2024-08-26 09:57 | Outpatient (REF) | payer BC, SELFPAY ==
--- NOTE | 2024-08-26 10:54 | ECG_ITS ---
Test Reason : copd Blood Pressure : */* mmHG Vent. Rate : 57 BPM Atrial Rate : 57 BPM P-R Int : 194 ms QRS Dur : 84 ms QT Int : 444 ms P-R-T Axes : 63 -9 41 degrees QTcB Int : 432 ms Sinus bradycardia Otherwise normal ECG When compared with ECG of 05-Jan-2024 11:13, No significant change was found Referred By: Jaskaran Bond Electronically Signed By: ADALBERTO LIZ MD
[2024-08-26 11:24] LABS: MANUAL DIFF FLAG NO
[2024-08-26 11:31] LABS: Basophils Percent Auto 0.7 % (0-2); Eosinophils Absolute Auto 0.1 X10*3/uL (0.0-0.4); Eosinophils Percent Auto 1.3 % (0-4); Hemoglobin 14.6 g/dl (12.0-16.0); Imm Gran Abs Auto 0.01 X10*3/uL (0.00-0.03); Imm Gran Pct Auto 0.2 % (0.0-0.4); Lymphocytes Absolute Auto 1.5 X10*3/uL (1.2-4.9); Lymphocytes Percent Auto 32.4 % (20-40); Mean Corpuscular Hemoglobin 31.9 pg (27.0-33.0); Mean Corpuscular Volume 94.1 fL (80.0-98.0); Mean Platelet Volume 9.7 fL (9.4-12.3); Monocytes Absolute Auto 0.3 X10*3/uL (0.1-1.2); Monocytes Percent Auto 6.3 % (2-11); Neutrophils Absolute Auto 2.7 x10*3/uL (2.0-8.3); Neutrophils Percent Auto 59.1 % (45-73); Platelet Count 199 X10*3/uL (160-400); Red Blood Count 4.57 X10*6/uL (4.20-5.50); Red Cell Distribution Width 12.2 % (11.0-16.0); White Blood Count 4.6 X10*3/uL (4.8-10.8)
--- OUTSIDE RECORDS SUMMARY | 2024-08-26 11:56 | XMS_ITS | Continuity of Care Document ---
Author Organization [facility] Address [address] [place] [address] Phone Care Team Providers Care Knotter Name Role Phone Aj HARDWICK FACS RVT [...] Providers Copied on Encounter [facility], [address], [place], [id number], [place] tel:[phone] [facility] No Information 3 Aj HARDWICK FACS ROSST JIN Polanco. [address] [facility], [place], [address], [place]. tel:[phone] Referring Provider: Jason Penaloza MD, [address] [facility] [address], [place], [address]. tel:[phone] [facility], [address], [place], [id number], [place] tel:[phone] [facility] Encounter for cosmetic surgery 3 Clarke Rudolph. [address] [facility] [address], [place], [id number], [place]. tel:[phone] Referring Provider: Jason Penaloza MD, [address], [place], [address]. tel:[phone] [facility], [address], [place], [id number], [place] tel:[phone] [address] [facility] [place] [facility] [place] Encounter for cosmetic surgery 3 Clarke Rudolph. [address] [facility] [address], [place], [id number], [place]. tel:[phone] Referring Provider: Jason Penaloza MD, [address], [place], [address]. tel:[phone] Family History Family Member Type Diagnosis Age At Onset No Information Payers Payer name Insurance type Covered constitution party ID Authoriza tiraul(s) Self Pay 09 Social [...]
--- OUTSIDE RECORDS SUMMARY | 2024-08-26 11:56 | XMS_ITS | Clinical Summary ---
Author Organization [facility] ity Address [address] [place] [address] Care Team Providers Care Ledge Man Name Role Phone Carl Flores MD Primary Care Provider [phone] Social History Tobacco Use Types Packs/Day Years [...] age to complete this topic Care Teams Ledge Man Relationship Specialty Start Date End Date Carl Flores MD [address] [place] [address] [facility] [address] Floor [place], [place] PCP - General 01/30/10
[2024-08-26 12:06] LABS: Alanine Aminotransferase 15 U/L (0-31); Albumin Level 4.1 g/dL (3.5-5.0); Anion Gap 12 (12-20); Aspartate Amino Transferase 19 U/L (5-31); Bilirubin Direct 0.2 mg/dL (0.0-0.5); Bilirubin Total 0.5 mg/dL (0.0-1.0); Blood Urea Nitrogen 18 mg/dL (9-16); Calcium 9.6 mg/dL (8.4-10.2); Carbon Dioxide 30 mmol/L (22-29); Chloride 102 mmol/L (96-108); Estimated Glomerular Filt Rate > 60; Glucose Random 88 mg/dL (60-115); Potassium 3.8 mmol/L (3.3-5.1); Sodium 140 mmol/L (135-145); Total Protein 6.5 g/dL (6.5-8.0)
[2024-08-26 12:18] LABS: Erythrocyte Sedimentation Rate 2 MM/HR (0-20)
[2024-08-26 19:46] LABS: Alkaline Phosphatase 64 U/L (39-117)
[2024-08-29 16:13] LABS: TS Negative Control Passed; TS Panel A 0; TS Panel B 3; TS Positive Control Passed; TSpotTB Negative (Negative)
== END ==
LOC: HO.CARD 09:57
PROVIDERS: PCP Internal Medicine; Visit Provider Hospitalist
DX: J44.9 Chronic obstructive pulmonary disease, unspecified (principal); A31.0 Pulmonary mycobacterial infection
CPT/HCPCS: 36415; 80048; 80076; 82785; 85025; 85652; 86481; 93005

== ENCOUNTER → 2024-08-26 10:54 | Outpatient (BNV) | payer BC, SELFPAY | PROVIDERS: PCP Internal Medicine; Visit Provider Internal Medicine Cardiovascular Disease | DX: R00.1 Bradycardia, unspecified (principal) | CPT/HCPCS: 93010 ==

== ENCOUNTER 2024-12-20 08:58 | Outpatient (AMB) | payer BC, SELFPAY ==
--- NOTE | 2024-12-20 09:06 | A.OFFVIS_ITS ---
Vital Signs 12/20/24 09:07 Height 5 ft 5 in Weight 188 lb 7.924 oz BMI 31.4 BP 148/70 H Blood Pressure Location Lt brachial Position Sitting Pulse 70 Pulse Source Pulse Oximeter Pulse Oximetry (%) 98 Oxygen Delivery Method Room Air Intake Visit Reasons: Asthma Director Broadcast Required: No Accompanied by: self Allergies amoxicillin Allergy (Severe, Verified 12/20/24 09:08) Rash contact metal agent Allergy (Severe, Verified 12/20/24 09:08) Hives amikacin Adverse Reaction (Severe, Verified 12/20/24 09:08) Shortness of Breath HPI Comments Details: The patient is a 69-year-old woman with a long history of asthma and pulmonary nodules. She was under the care of a pulmonary group for many years. 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 During that process evaluation the patient was referred to [facility] when she was also evaluated there for her ongoing respiratory symptoms in addition to pulmonary nodules. She has been stable on the Breo inhaler. the patient does have relief on her current respiratory regimen. We did talk about potential triggers. She has had allergy testing both with blood testing and more recently she has been evaluated by Allergy immunology which she had skin testing and does have typical allergies including molds and environmental allergens. She was placed on Xolair but she had adverse symptoms. She has had issues with high as and other rashes. She was referred to [facility] for further evaluation. It was question if she would go back on Xolair as lower dose. she will continue following with Allergy immunology this time. the patient also describes going to [facility] just a few days ago with chest pain. She was ruled out for an PR. Her EKG was indeed abnormal demonstrating decrease R-wave progression. She was evaluated by her new primary care doctor and she will be undergoing additional testing for underlying cardiac disease at this time. The patient was a smoker and she quit more than 20 years ago. She did have a CT scan of the chest that was personally by me back in September 2020 at [facility] in [place]. She has underlying pulmonary nodules in addition to to some areas of tree in budding suggesting of bronchiolitis. These areas are scattered. She also has pulmonary nodules. We did talk about underlying obstructive airway disease in different conditions that can mimic asthma. In the meantime will start with repeating her pulmonary function studies and assessing her baseline. In addition to that will request blood work in order to further investigate her underlying condition. 05/05/2023 the patient is here for a pulmonary follow-up visit. The patient has been feeling better. She did have a respiratory illness a few weeks ago. She has not recovered. She also having a lot of productive sputum. She was concerned about the mycobacterial disease. In the meantime she has hard time tolerating the antimycobacterial therapy. She has only been taking the azithromycin 500 mg 7 days a week. Explained to him the concerns about the possibility of resistance. By taking monotherapy she can become resistant to the only medication that when most of the work. Therefore, she is agreeable to taking the triple therapy 3 times a week and then we can recheck her sputum hopefully in 3 months time. We also reviewed her EKG. She had an EKG done last month demonstrating some slight intraventricular conduction delay that was not convinced with. We had a repeat an EKG and was completely normal. QRS intervals are normal QT intervals are also normal. Therefore explained to her that is safe for her to take the azithromycin but she needs to be careful with any other medication interactions. The patient did have PFTs and we did review them. Appears that her FEV1 is improved from 1.59-1.79 L which is reassuring. She still has mild COPD. Her last CT scan was back in August 2022 demonstrating pulmonary nodules. Will plan to have her come back in the springtime after her CT scan to address her pulmonary nodules. At that time will also review her sputum and also recheck her EKG. I am hopeful that she is doing well and if her sputums are negative we can switch her to monotherapy. A S the the the the has a rectal down to a couple was not the the the a the lumen with the the the the the about it I forget p.o. diet g IV that will admit about the dialed up at [facility] unaware that whole device and a little bit of weight going without emesis I shot a barely noticeable point abnormal we downloaded the it a little better appointment in the the will reassess and ileus of vitals does happens under local his MSLT to be done from [facility] comorbid CT scan does he can supplement a a fter a does more reasonable a hello ago when she had to pay the head or coughing more the the the the nebulized tested be in no should exercise the the LQ if perhaps 09/08/2023 the patient is here for a pulmonary follow-up visit. Overall the patient has been doing well respiratory whatley seems to be responding well to the therapy. Denies any worsening shortness breath or cough. She is also working on weight loss which is reassuring. In the meantime the patient has been using her anti mycobacterial therapy 3 times a week. She seems to be tolerating that well. She did not tolerate the daily therapy. The patient unfortunately had sputum demonstrating again mycobacterial disease seems like can not seem to clear this organism. She has been working in the garden but she has wearing a mask. We also did look at her CT scan of the chest that she had recently August 2023 and we did compare to 2022 in addition to 2019. When compared to 2019 there seems to be significant improvement in the parenchymal disease in the air space disease. Suggesting that she has been responding to therapy but slowly. Will plan to continue with the 3 times a week on anti-mycobacterial therapy. The patient understands that the only limiting issue is the fact that we arranged the duration therapy when she has a negative sputum. We will plan to collect another sputum in the next 3 months. 01/05/2024 the patient is here for a pulmonary follow-up visit. Overall she is doing very well. Denies any respiratory complaints. She does continue her respiratory medications and also the Xolair. She also continues with the antimycobacterial therapy 3 times a week. She has been tolerating well. The patient unfortunately had another sputum positive for non tuberculosis mycobacterial disease. Will go ahead and be sent for sensitivities. Will also request a CT scan of the chest in 08/28/2024. The patient has not been able to tolerate augmentation of the antimycobacterial therapy because of adverse ef fects.. Is reassuring that she is feeling well. Will go ahead and continue the current therapy although we will request sensitivities to further assess any potential changes in her management. Today she is going to undergo blood work and an EKG while she is on the antimycobacterial therapy. The patient will follow-up in August after her CT scan although she can always call if she is having any new or concerning issues. 08/26/2024 the patient is here for a pulmonary follow-up visit. Overall she is doing well. He continues on the antimicrobial therapy 3 times a week. She seems to be tolerating this regimen most. She did have another sputum sent back in 07/28/2019 25. Unfortunately did come back positive for AFB just yesterday. Seems that he is thinking longer longer. Will see with the identification of the mycobacterial will be this time. In the meantime she did have a CT scan of the chest which I personally reviewed demonstrating some stability of the nodular densities and she does have some areas of atelectasis but otherwise no evidence of any progressive disease. So overall she is responding well to the therapy will continue her on the therapy at this time. The issue is based on the fact that she continues to test positive for AFB is difficult to know the duration of the therapy since she is still positive. So for now she is on the therapy indefinitely as long she can not tolerated. Sorry nodules are stable she will have another CAT scan in a year's time. She also has a little bit of emphysema which is stable. 12/20/2024 the patient is here for pulmonary follow-up visit. Overall she is feeling well. She is tolerating the 90 mycobacterial therapy. The difficult part is that she continues to be positive so therefore the duration of treatment is still indefinite. Continue for now she seems to be tolerating it. The patient has had some issues with tachycardia. She did have will cardiac stress test and that was fine. Will been monitoring her EKGs as well demonstrating normal QT see. Therefore she will continue with the macrolide therapy as prescribed. In the meantime she continues to exercise on a regular basis and ambulate. Her next CAT scan will be in July of 2024. Will continue current therapy plan to follow-up after her CT scan. She continues use the Trelegy with good effect. She has not required any prednisone which is reassuring. She does have a fit bit and sometimes she does get a report that her oxygen levels are low at nighttime. She does have some daytime drowsiness with an elevated Amado score of 11/24. Will be reasonable to check an overnight oximetry at this time. 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 Atopic dermatitis Bronchiolitis Pulmonary nodules Asthma Social History Patient Tobacco Use Status: Former Tobacco user Tobacco use type: Cigarette Years Smoked: Quit 1998 20 years Review of Systems Const Denies night sweats and Reports weight loss ENT Denies change in voice, Denies hoarseness, Denies lip swelling, Denies mouth pain, Denies nasal congestion and Denies tongue swelling Card Denies chest pain and Denies dyspnea on exertion Resp Denies chest congestion, Reports cough, Denies hemoptysis, Denies dyspnea on exertion and Denies wheezing GI Denies abdominal pain, Reports bloating, Denies hematochezia, Reports change in bowel habits, Reports loose stools and Reports nausea Musc Reports abnormal gait, Reports arthralgias and Reports joint swelling Skin/Breast Denies rash and Denies skin swelling Neuro Denies Neuro-related abnormal movements and Reports abnormal gait Psych Denies no additional complaints Quentin/Lymph Denies easy bleeding and Denies lymphadenopathy Aller/Immun Denies lip swelling, Denies tongue swelling and Denies wheezing Physical Exam Vital Signs: Last Vital Signs Pulse 70 12/20/24 09:07 BP 148/70 H 12/20/24 09:07 Pulse Ox 98 12/20/24 09:07 Oxygen Delivery Method Room Air 12/20/24 09:07 BMI result Body Mass Index 31.4 Const General: alert Neck Neck: Yes normal visual inspection, Yes full ROM and Yes no lymphadenopathy Chest Chest palpation & inspection: normal inspection of the chest Resp Effort & Inspection: normal respiratory effort and No prolonged expiratory phase Auscultation: clear to auscultation bilaterally, no crackles, no rales, no rhonchi and no wheezes Cardio Rate: regular rate Rhythm: regular rhythm Heart sounds: S1 normal heart sound present and S2 normal heart sound present GI Palpation (GI): Soft to palpation and nontender Auscultation: normal bowel sounds General: Yes no CVA tenderness Back/Spine/Pelvis Back: no CVA tenderness Skin General skin exam: rashes and/or lesions noted Assessment & Plan Assessment & Plan (1) Nontuberculous mycobacterial disease of lung: Comment: M. marseillense->M. avium complex->M.CHIMAERA INTRACELLULARE->M. avium complex->M.CHIMAERA INTRACELLULARE->+AFB (ID pending) Code(s): A31.0 - Pulmonary mycobacterial infection Category: Medical (2) Asthma-COPD overlap syndrome: Code(s): J44.9 - Chronic obstructive pulmonary disease, unspecified Category: Medical (3) Pulmonary nodules: Code(s): R91.8 - Other nonspecific abnormal finding of lung field Category: Medical (4) Bronchiolitis: Code(s): J21.9 - Acute bronchiolitis, unspecified Category: Medical Plan Continue Trelegy 100 GLADYS as needed continue Azithromycin MWF continue Rifampin/Ethambutol MWF duration difficult based on the continued positive sputum Avoid saunas, poorly ventilated hot tubes and direct exposure to soil, and pond. Respirator when working with soil or in the pond repeat sputm AFB +, pending ID repeat CT chest 07/2025 overnight oximetry on RA EKG F/U in 8 months Orders: Orders ECG 12 lead EKG Today J44.9 - Chronic obstructive pulmonary disease, unspecified Overnight Pulse Oximetry Today J44.9 - Chronic obstructive pulmonary disease, unspecified Coding Level of Care Code Est Pt Level 4 (90685) Complex EM visit Add On G2211 Diagnoses Nontuberculous mycobacterial disease of lung A31.0 Asthma-COPD overlap syndrome J44.9 Pulmonary nodules R91.8 Bronchiolitis J21.9 Time Spent (min) 17
[2024-12-20 09:07] VITALS: BP 148/70; PULSE 70; O2SAT 98; BMI 31.4
--- OUTSIDE RECORDS SUMMARY | 2024-12-20 09:27 | XMS_ITS | Clinical Summary ---
Author Organization [address] [place] [address] [place] [id number] Phone Care Team Providers Care Ventilation Mechanic Name Role Phone Jason Penaloza MD Primary Care Provider [phone] Allergies Active Allergy Reactions Criticality Noted Date Comments Amikacin Liposomal-Neb.Accessr 03/04 Amoxicillin Rash Low 07/11/2021 Codeine 07/11/2021 Medications hydroCHLOROthia zide (HYDRODIURIL) 25 mg tablet Take 1 tablet (25 mg total) by mouth daily. Active vit A,C and V-cxlbsq-iufygu ls (OCUVITE) 300 mcg-200 mg-27 mg-2 mg tablet Take 1 tablet by mouth daily. Active rifAMPin (RIFADIN) 300 mg capsule Take 2 capsules (600 mg total) by mouth 3 (three) times a week. 09/10/2022 Active azithromycin (ZITHROMAX) 500 mg tablet Take 1 tablet (500 mg total) by mouth daily. Active guaiFENesin (Mucinex) 1,200 mg 12 hr tablet Take by mouth. Active ethambutoL (MYAMBUTOL) 400 mg tablet Take 2 tablets (800 mg total) by mouth 3 (three) times a week. 09/10/2022 Active MAGNESIUM GLYCINATE ORAL Take by mouth. Active Encounters Date Type Department Care Team Description 11/22/2024 7:30 AM EDT Ancillary Procedure [facility] [address] [address] Dyspnea on exertion 11/09/2024 Telephone [facility] 101 300 [facility] [address] [place] [address] Lukas Rahman NP EKG REVIEW from Last 3 Months Social History Tobacco Use Types Packs/Day Years Used Date Smoking Tobacco: Former Cigarettes Smokeless Tobacco: Former Tobacco Cessation:Counseling Given: Not Answered Alcohol Use Standard Drinks/Week Comments Not Currently 0 (1 standard drink = 0.6 oz pur e alcohol) Comments Unknown Sex and Gender Information Value Date Recorded Sex Assigned at Not on file Legal Sex Female 1:32 AM EST Gender Identity Not on file Sexual Orientation Not on file Obstetrics History Last Filed Vital Signs Vital Sign Reading Time Taken Comments Blood Pressure 138/65 11/22/2024 7:43 AM EDT Pulse - - Temperature - - Respiratory Rate - - Oxygen Saturation - - Inhaled Oxygen Concentration - - Weight 83.5 kg (184 lb) 11/22/2024 7:43 AM EDT Height - - Body Mass Index - - Plan of Treatment Health Maintenance Due Date Last Done Comments Breast Cancer Screening 1955 DTaP,Tdap,and Td Vaccines (1 - Tdap) 1976 Zoster Vaccines (1 of 2) 09/28/2007 Depression Screening 05/11/2024 COVID-19 Vaccine ( season) 2024 03/05/2024, 02/28/2023, 02/15/2022, Additional history exists Cholesterol Screening (Lipid Panel) 11/10/2024 Colorectal Cancer Screening: Colonoscopy 11/10/2024 Falls Risk Assessment 11/10/2024 Hepatitis C Screening 11/10/2024 Osteoporosis Screening (Bone Density Screening) 11/10/2024 Social Influencers of Health Screening 11/10/2024 Hypertension/CHF/CAD Annual BMP Blood Test 11/22/2024 Influenza Vaccine (#1) 2025 , 02/28/2023, 02/15/2022, Additional history exists Pneumococcal Vaccine: 50+ Years Completed 04/23/2022 RSV Immunization Adult Patients Completed 06/23/2024 HIB Vaccines Aged Out No longer eligi [...] to complete this topic RSV Immunization Patients Under 20 months Aged Out No longer eligible based on patient's age to complete this topic Varicella Vaccines Aged Out No longer eligible based on patient's age to complete this topic Procedures Procedure Name Priority Date/Time Associated Diagnosis Comments STRESS TEST ONLY EXERCISE Routine 11/22/2024 8:21 AM EDT Dyspnea on exertion from Last 3 Months Results * Exercise stress test (11/22/2024 8:21 AM EDT) Exercise/injec tion duration (min) 10 CV STRESS ONLY Exercise/injec tion duration (sec) 1 CV STRESS ONLY Peak SBP 200 mmHg CV STRESS ONLY Peak DBP 78 mmHg CV STRESS ONLY Peak HR 141 bpm CV STRESS ONLY Baseline HR 69 bpm CV STRES S ONLY Baseline SBP 138 mmHg CV STRE SS ONLY Baseline DBP 65 mmHg CV STRE SS ONLY Estimated workload 13.4 METS CV STRESS ONLY Percent HR 92 % CV STRESS ONLY Rate Pressure Product 28,200.0 mmHg*bpm CV STRESS ONLY Target HR 130 bpm CV STRESS ONLY Max HR Percent 92 % CV ST RESS ONLY O2 sat rest 99 % CV STRES S ONLY Anatomical Region Laterality Modality Cardiac Diagnost ic 11/22/2024 7:47 AM EDT 11/22/2024 8:24 AM EDT Narrative 11/22/2024 1:55 PM EDT Normal exercise EKG stress test at a target heart rate and excellent functional capacity. Stress ECG was normal. Patient reported no symptoms during the stress test. Exercise capacity was excellent. Normal blood pressure response. Stress Findings A Nehemias protocol stress test was performed. Overall, the patient's exercise capacity was excellent. The patient reached stage 4. Total stress time was 10 min and 1 sec. The patient reached the end of the protocol and achieved the target heart rate. The patient's hemodynamic response was adequate for diagnosis. Blood pressure demonstrated a normal response. Heart rate demonstrated a normal response. The patient reported no symptoms during the stress test. ECG 69-year-old female with past medical history of hypertension, obesity, COPD who presents today for an exercise stress test to rule out ischemia in the setting of increased dyspnea on exertion and elevated heart rates noted on her Fitbit while working out. She is not on any calcium channel blockers or beta-blockers. The ECG shows sinus rhythm. There were no arrhythmias during stress. There is no significant ST abnormalities during stress. There were no arrhythmias during recovery. The result of the stress ECG was negative for ischemia. Procedure Note Nelli Raygoza NP / Akhil Tan MD - 11/22/2024 Normal exercise EKG stress test at a target heart rate and excellentfunctional capacity. Stress ECG was normal. Patient reported no symptoms during the stress test. Exercise capacitywas excellent. Normal blood pressure response. us Lukas Rahman NP CV STRESS PROCEDURES Final Resul t from Last 3 Months Insurance [facility] Care Teams Ventilation Mechanic Relationship Specialty Start Date End Date Jason Penaloza MD [address] [place] [address] PCP - General Internal Medicine 11/22/24
--- OUTSIDE RECORDS SUMMARY | 2024-12-20 09:27 | XMS_ITS | Encounter Summary ---
Author Organization [facility] Address [address] [facility] [address] [place] [address] Phone Care Team Providers Care Hub Borer Name Role Phone Carl Flores MD Primary Care Provider Jason Penaloza MD Primary Care Provider [phone] Jaskaran Bond MD Unavailable Kathy Sosa MD Unavailable [phone] Encounter Details Date Type Department Care Team (Latest Contact Info) Description 02/27/2020 Transcribe Orders [facility] [address] [place] [address] Shai Reynolds MD [facility] [address] [address] Dermatosis (Primary Dx) Social History Tobacco Use Types Packs/Day Years Used Date Smoking Tobacco: Never Assessed Comments Unknown Sex and Gender Information Value Date Recorded Sex Assigned at Female 07/23/2022 2:11 PM EDT Legal Sex Female 12:18 PM EST Gender Identity Female 07/23/2022 2:11 PM EDT Sexual Orientation Straight 07/23/2022 2: 11 PM EDT documented as of this encounter Plan of Treatment Not on file documented as of this encounter Results * Lyme screen with reflex to Western blot, blood (02/27/2020 11:37 AM EDT) Lyme AB IgG Negative Negative [facility] Lyme AB IgM Negative Negative [facility] Blood 02/27/2020 11:3 7 AM EDT 02/27/2020 11:41 AM EDT us Shai Reynolds MD LAB BLOOD ORDERABLES Fin al Result [facility] [address] [place] [address] documented in this encounter Visit Diagnoses Diagnosis Dermatosis- Primary Unspecified disorder of skin and subcutaneous tissue documented in this encounter Care Teams Hub Borer Relationship Specialty Start Date End Date Carl Flores MD [address] [place] [address] PCP - General Pulmonary Disease 05/23/19 07/22/22 Jason Penaloza MD [address] [address] PCP - General Internal Medicine 07/23/22 Jaskaran Bond MD [address] [place] [address] [place] [address] Pulmonary Disease 09/10/22 Kathy Sosa MD [address] [place] [id number] [email or web address] Infectious Diseases 09/10/22 documented as of this encounter Additional Source Comments The information contained in this document represents components of the legal health record. It is not the complete legal health record.[facility]
== END 2024-12-20 09:41 | disposition home or self-care (01) ==
LOC: HO.HPS 08:59
PROVIDERS: PCP Internal Medicine; Visit Provider Hospitalist
DX: A31.0 Pulmonary mycobacterial infection (principal); J44.9 Chronic obstructive pulmonary disease, unspecified; R91.8 Other nonspecific abnormal finding of lung field; J21.9 Acute bronchiolitis, unspecified
CPT/HCPCS: 99214

== ENCOUNTER → 2025-02-08 20:30 | Outpatient (REF) | payer BC, SELFPAY ==
--- OUTSIDE RECORDS SUMMARY | 2025-02-08 21:43 | XMS_ITS | Encounter Summary ---
Author Organization [facility] Address [address] [facility] [address] [place] [phone] Phone Care Team Providers Care Medical Office Secretary Name Role Phone Carl Flores MD Primary Care Provider Jason Penaloza MD Primary Care Provider [phone] Jaskaran Bond MD Unavailable Kathy Sosa MD Unavailable [phone] Encounter Details Date Type Department Care Team (Latest Contact Info) Description 02/27/2020 Transcribe Orders [facility] Laboratory [address] [place] [address] Shai Reynolds MD [address] [place] [address] Dermatosis (Primary Dx) Social History Tobacco Use [...] AM EDT) Lyme AB IgG Negative Negative [facility] Lyme AB IgM Negative Negative [facility] Blood 02/27/2020 11:3 7 AM EDT 02/27/2020 11:41 AM EDT us Shai Reynolds MD LAB BLOOD ORDERABLES Fin al Result [facility] [address] [place] [address] documented in this encounter Visit Diagnoses Diagnosis Dermatosis- Primary Unspecified disorder of skin and subcutaneous tissue documented in this encounter Care Teams Medical Office Secretary Relationship Specialty Start Date End Date Carl Flores MD [address] [place] [address] PCP - General Pulmonary Disease 05/23/19 07/22/22 Jason Penaloza MD 300 [facility] [address] [place] [address] PCP - General Internal Medicine 07/23/22 Jaskaran Bond MD [address] [place] [address] [place] [address] Pulmonary Disease 09/10/22 Kathy Sosa MD [address] [address] [email or web address] Infectious Diseases 09/10/22 documented as of this encounter Additional Source Comments The information contained in this document represents components of the legal health record. It is not the complete legal health record.[facility]
--- OUTSIDE RECORDS SUMMARY | 2025-02-08 21:43 | XMS_ITS | Clinical Summary ---
Author Organization [address] [place] [address] [place] [id number] Phone Care Team Providers Care Senior Lead Developer Name Role Phone Jason Penaloza MD Primary Care Provider [phone] Allergies Active Allergy Reactions Criticality Noted Date Comments Amikacin Liposomal-Neb.Accessr 03/04 Amoxicillin Rash Low 07/11/2021 Codeine 07/11/2021 Medications hydroCHLOROthia zide (HYDRODIURIL) 25 mg tablet Take 1 tablet (25 mg total) by mouth daily. Active vit A,C and B-ejafez-iazsbd ls (OCUVITE) 300 mcg-200 mg-27 mg-2 mg [...] Description 11/22/2024 7:30 AM EDT Ancillary Procedure [facility] [address] [address] Dyspnea on exertion 11/09/2024 Telephone [facility] 101 300 [facility] Elias [address] [place] [address] Lukas aRhman NP from Last 3 Months Social History Tobacco [...] Last Done Comments Breast Cancer Screening 1955 Colorectal Cancer Screening: Colonoscopy 1955 DTaP,Tdap,and Td Vaccines (1 - Tdap) 1976 Zoster Vaccines (1 of 2) 09/28/2007 Depression Screening 05/11/2024 Cholesterol Screening (Lipid Panel) 11/10/2024 Falls Risk Assessment 11/10/2024 Hepatitis C Screening 11/10/2024 Osteoporosis Screening (Bone Density Screening) 11/10/2024 Social Influencers of Health Screening 11/10/2024 Hypertension/CHF/CAD Annual BMP Blood Test 11/22/2024 COVID-19 Vaccine ( season) 2025 03/05/2024, 02/28/2023, 02/15/2022, Additional history exists Influenza Vaccine (#1) 2025 , 02/28/2023, 02/15/2022, [...] Exercise capacitywas excellent. Normal blood pressure response. Lukas Rahman NP CV STRESS PROCEDURES Final Resul t from Last [address] [facility] Care Teams Senior Lead Developer Relationship Specialty Start Date End Date Jason Penaloza MD [address] [place] [address] PCP - General Internal Medicine 11/22/24
--- OUTSIDE RECORDS SUMMARY | 2025-02-08 21:43 | XMS_ITS | Encounter Summary ---
Author Organization [facility] Address [address] [facility] [address] [place] [address] Phone Care Team Providers Care Records Coordinator Name Role Phone Carl Flores MD Primary Care Provider [phone] Jason Penaloza MD Primary Care Provider Jaskaran Bond MD Unavailable [phone] Kathy Sosa MD Unavailable [phone] Encounter Details Date Type Department Care Team (Late st Contact Info) Description 08/15/2019 Transcribe Orders [facility] [address] [place] [address] [email or web address] Social History Tobacco Use Types Packs/Day Years [...] documented as of this encounter Results * CT Chest Outside (No Interpretation) (08/15/2019 12:21 PM EDT) Narrative [facility] - 08/15/2019 12:21 PM EDT This study is for PACS storage only and not for interpretation. us Carl Flores MD IMG OUTSIDE IMAGING W/OUT INT ERPRETATION Final Result Performing Organization Address [facility] de Phone Number [email or web address] * CT Chest Outside (No Interpretation) (08/15/2019 12:21 PM EDT) Narrative [facility] - 08/15/2019 12:21 PM EDT This study is for PACS storage only and not for interpretation. Carl Flores MD IMG OUTSIDE IMAGING W/OUT INT ERPRETATION Final Result Performing Organization Address [facility] de Phone Number [email or web address] * CT Chest Outside (No Interpretation) (08/15/2019 12:21 PM EDT) Narrative DERRELLIPIO[facility] - 08/15/2019 12:21 PM EDT This study is for PACS storage only and not for interpretation. Carl Flores MD IMG OUTSIDE IMAGING W/OUT INT ERPRETATION Final Result Performing Organization Address [facility] de Phone Number [email or web address] documented in this encounter Visit Diagnoses Not on filedocumented in this encounter Care Teams Records Coordinator Relationship Specialty Start Date End Date Carl Flores MD [address] [place] [address] PCP - General Pulmonary Disease 05/23/19 07/22/22 Jason Penaloza MD [address] [place] [address] [address] [place] [address] PCP - General Internal Medicine 07/23/22 Jaskaran Bond MD [address] [place] [address] [place] [address] Pulmonary Disease 09/10/22 Kathy Sosa MD [address] [place] [address] [email or web address] Infectious Diseases 09/10/22 documented as of this encounter Additional Source Comments The information contained in this document represents components of the legal health record. It is not the complete legal health record.[facility]
--- OUTSIDE RECORDS SUMMARY | 2025-02-08 21:44 | XMS_ITS | Clinical Summary ---
Author Organization [facility] Address [address] [address] Phone Care Team Providers Care Beam Saw Operator Name Role Phone Jason Penaloza MD Primary Care Provider [phone] Jaskaran Bond MD Unavailable Kathy Sosa MD Unavailable [phone] Allergies Active Allergy Reactions Criticality Noted Date Comments Amoxicillin Rash Low 07/11/2021 Codeine 07/11/2021 Medications hydroCHLOROthiazi de (HYDRODIURIL) 25 MG tablet Take 25 mg by mouth daily. Active famotidine (PEPCID) 20 MG tablet Take 20 mg by mouth 2 (two) times a day. Active vitamin A,C & L-zgiyop-ggfypcbh (OCUVITE) 1,000 unit-200 mg-60 unit-2 mg Tab Take 1 tablet by mouth daily. Active diphenhydrAMINE (BENADRYL) 25 mg capsule Take 25 mg by mouth every 6 (six) hours as needed for itching. Active therapeutic multivitamin tablet Take 1 tablet by mouth daily. Active levocetirizine (XYZAL) 5 MG tablet Take 5 mg by mouth every evening. Active albuterol 90 mcg/actuation inhaler Inhale 2 puffs into the lungs every 6 (six) hours as needed for wheezing. Active valACYclovir (VALTREX) 1000 MG tablet Take 1,000 mg by mouth 2 (two) times a day. Active EPINEPHrine 0.3 mg/0.3 mL auto-injector Inject 0.3 mg into the muscle as needed for anaphylaxis. Active TRELEGY ELLIPTA 100-62.5-25 mcg inhalation powder Inhale 1 puff into the lungs daily. 3 Active XOLAIR 150 mg/mL subcutaneous syringe 3 Active predniSONE (DELTASONE) 20 MG tablet Take 1 tablet by mouth daily. 3 Active albuterol 2.5 mg /3 mL (0.083 %) nebulizer solution 3 Active guaiFENesin 1,200 mg Ta12 Take 1 tablet by mouth daily. Active azithromycin (ZITHROMAX) 500 MG tablet Take 500 mg by mouth daily. Active rifAMPin (RIFADIN) 300 MG capsule Take 2 capsules (600 mg total) by mouth 3 (three) times a week. 3 Active ethambutoL (MYAMBUTOL) 400 MG tablet Take 2 tablets (800 mg total) by mouth 3 (three) times a week. 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 By CT, disease burden seems relatively modest, and there is no significant bronchiectasis. She started treatment with thrice weekly azithromycin, ethambutol, and rifampin in October 2021. Aside from mild diarrhea, she has tolerated treatment well. In general, she has not noticed a significant change in her chronic cough. Sputum mycobacterial cultures were again positive for MAC in December 2021 (not surprising at that point) and in May 2022. Azithromycin, but not ethambutol and rifampin, was changed to daily administration in April 2022. Last month, treatment intensification with inhaled liposomal amikacin (Arikayce) was poorly tolerated, resulting in COPD exacerbation, from which she is still recovering, and two episodes of blood-streaked sputum. Arikayce was stopped after 10 days, and the other components of her regimen have been suspended as well. We discussed the variable natural history of pulmonary MAC, the goals of treatment, and the challenges associated with treatment, with which she is largely familiar. Antimycobacterial treatment results and sputum culture conversion and about 50 to 70% of cases, and treatment usually continues for at least 18 months, or 12 months after culture conversion, which ever is longer. Refractory culture positivity is common, and even when culture conversion does occur, recurrence is common, reflecting either relapse of on eradicated infection, or reinfection. Given the ubiquity of MAC in the environment, reinfection is increasingly suspected. I think it would be reasonable to resume treatment, and I would favor administering azithromycin, ethambutol, and rifampin on a daily, rather than thrice weekly, basis. Recommend: Azithromycin 500 mg PO daily Ethambutol 1200 mg PO daily. The usual recommended dose is 15 mg/kg/d, which would be 1600 mg daily, but given obesity, I would suggest 1200 mg daily and checking an ethambutol level (2 hrs post dose) after she has been on the medication for at least a week. Rifampin 600 mg PO daily. Consider therapeutic drug monitoring for this drug as well (admittedly not evidence-based). Monthly office visits for symptom monitoring, color vision screening (given ethambutol), and safety labs (BUN, Cr, LFTs, CBC w/ diff) Collect sputum for AFB smear and mycobacterial culture at least every [address] every 6-12 months Bronchial hygiene maneuvers daily, with a flutter valve, ideally following exercise and albuterol I would pursue daily azithromycin, ethambutol, and rifampin for at least 3-6 months before considering treatment modification or intensification. I would not rechallenge with inhaled liposomal amikacin, though nebulized conventional amikacin can be considered. I would be inclined to avoid IV amikacin given her single kidney. Should sputum remain culture positive, I would request a full panel of susceptibility testing (at [facility] in [place], or [facility]), including clofazimine, bedaquiline, and linezolid. Asthma 07/11/2021 Gastroesophageal reflux disease 07/11/2021 Hypertension 07/11/2021 Cough 11/05/2020 Immunizations Immunization Administration Dates Next Due Influenza Quadrivalent MDCK Preservative Free IM 02/15/2022,04/29/2019 Influenza Quadrivalent Preservative Free IM 02/09 Pneumococcal conjugate PCV20 04/23/2022 Family History Medical History Relation Comments Allergic rhinitis Brother Allergic rhinitis Child Allergic rhinitis Mother Allergic rhinitis Sister Relation Status Comments Brother Child Mother Sister Social History Tobacco Use Types Packs/Day Years Used Date Smoking Tobacco: Never Smokeless Tobacco: Never Education Answer Date Recorded Are you interested in more education? Not on maria isabel e 09/05/2022 Are you concerned about learning? Not on file 09/05/2022 No 09/05/2022 No 09/05/2022 Digital Access Answer Date Recorded No 10/04/2022 No 10/04/2022 No 10/04/2022 Reliable internet access at home? Not on file 10/04/2022 Device with a working camera? Not on file Comments Unknown Sex and Gender Information Value Date Recorded Sex Assigned at Female 07/23/2022 2:11 PM EDT Legal Sex Female 12:18 PM EST Gender Identity Female 07/23/2022 2:11 PM EDT Sexual Orientation Straight 07/23/2022 2: 11 PM EDT Last Filed Vital Signs Vital Sign Reading Time Taken Comments Blood Pressure 145/88 09/10/2022 1:00 PM EDT Pulse 78 09/10/2022 1:00 PM EDT Temperature 36.5 C (97.7 F) 09/10/2022 1:00 PM EDT Respiratory Rate - - Oxygen Saturation 96% 09/10/2022 1:00 PM EDT Inhaled Oxygen Concentration - - Weight 110.7 kg (244 lb) 09/10/2022 1:00 PM EDT Height 167.6 cm (5' 6 ) 07/11/2021 12:59 PM EST Body Mass Index 39.38 07/11/2021 12:59 PM EST Plan of Treatment Health Maintenance Due Date Last Done Comments Adult Td,Tdap Booster 1955 LIPID PANEL 1957 POTASSIUM LEVEL 1957 DEPRESSION SCREENING 1969 HEPATITIS C SCREENING 09/28/1975 SCREENING FOR DIABETES 1992 MAMMOGRAM 1997 COLOGUARD 2002 COLONOSCOPY 2002 COLORECTAL CANCER SCREENING 2002 FIT TEST 2002 FOBT 2002 SIGMOIDOSCOPY 2002 VIRTUAL COLONOSCOPY 2002 ZOSTER VACCINES (1 of 2) 09/28/2007 RSV VACCINE (1 - Risk 60-74 years 1-dose series) 2017 OSTEOPOROSIS SCREENING INITIAL (ONE-TIME) 2022 BLOOD PRESSURE 03/13/2023 09/10/2022 INFLUENZA VACCINE (#1) 2024 , 03/08/2021, 04/29/2019 COVID-19 VACCINE ( season) 2025 02/15/2022, 03/08/2021, 08/03/2020, Additional history exists SMOKING STATUS SCREENING (Once After 26 Yrs) Completed 07/11/2021 PNEUMOCOCCAL VACCINES (50+ years) Completed 04/23/2022 HEPATITIS A VACCINES Aged Out No long er eligible based on patient's age to complete this topic HIB VACCINES Aged Out No longer eligi ble based on patient's age to complete this topic MENINGOCOCCAL VACCINES (ACWY) Aged Out No longer eligible based on patient's age to complete this topic MENINGOCOCCAL VACCINES (B) Aged Out N o longer eligible based on patient's age to complete this topic Medical Devices Not on file Insurance [facility] [employer] [facility] [place]NOTE 2[facility] [employer] [facility] [place] [address] [employer] [facility] [employer] Care Teams Beam Saw Operator Relationship Specialty Start Date End Date Jason Penaloza MD [address] [place] [address] [address] [place] [address] PCP - General Internal Medicine 07/23/22 Jaskaran Bond MD [address] [place] [address] [place] [address] Pulmonary Disease 09/10/22 Kathy Sosa MD [address] [place] [address] [email or web address] Infectious Diseases 09/10/22 Additional Source Comments The information contained in this document represents components of the legal health record. It is not the complete legal health record.[facility]
== END ==
LOC: HO.SL 20:30
PROVIDERS: PCP Internal Medicine; Visit Provider Hospitalist
DX: G47.33 Obstructive sleep apnea (adult) (pediatric) (principal); G47.34 Idiopathic sleep related nonobstructive alveolar hypoventilation
CPT/HCPCS: 95810

== ENCOUNTER → 2025-02-08 21:31 | Outpatient (BNV) | payer BC, SELFPAY | PROVIDERS: PCP Internal Medicine; Visit Provider Internal Medicine | DX: G47.33 Obstructive sleep apnea (adult) (pediatric) (principal); G47.61 Periodic limb movement disorder | CPT/HCPCS: 95810 ==